=== PATIENT | female | born 1955 | race Caucasian/White ===

== ENCOUNTER 2024-05-27 13:47 | Outpatient (REF) | payer MEDICARE, SELFPAY ==
[2024-05-27 14:09] VITALS: BP 187/82; PULSE 65; RESP 17; TEMP 36.1; O2SAT 96; BMI 35.4
== END 2024-05-27 13:48 | disposition home or self-care (01) ==
LOC: HO.MS 13:47
PROVIDERS: PCP Internal Medicine; Visit Provider Ophthalmology
PROC: (CPT 66821; principal; 2024-05-27 14:30)
DX: H26.491 Other secondary cataract, right eye (principal)
CPT/HCPCS: 66821

== ENCOUNTER 2024-06-21 12:35 | Outpatient (AMB) | payer MEDICARE, SELFPAY ==
[2024-06-21 12:36] VITALS: BP 140/80; PULSE 68; TEMP 36.6; O2SAT 98; BMI 41.6
--- NOTE | 2024-06-21 12:36 | MHC.OFFWIV ---
Intake Vital Signs 06/21/24 12:36 Height 5 ft 3 in Weight 235 lb BMI 41.6 BP 140/80 H Blood Pressure Location Rt brachial Position Sitting Pulse 68 Pulse Source Pulse Oximeter Temp 97.9 F Temp Source Temporal Artery Scan Pulse Oximetry (%) 98 Intake Visit Reasons: ?pink eye-left eye Intake Note: pt is here for pink eye, left eye Patient Tobacco Use Status: Never used Tobacco Allergies No Known Allergies Allergy (Verified 06/21/24 12:36) Medication List - Last Reconciled 06/21/24 by Georgia Flores NP amlodipine 5 mg PO DAILY budesonide-formoterol 160-4.5 mcg/actuation (Symbicort) inhalation erythromycin 0.5 inches ophthalmic (eye) TID gabapentin mg PO metoprolol succinate ER 100 mg PO DAILY simvastatin 40 mg PO BEDTIME tiotropium bromide 1 cap inhalation DAILY trazodone 100 mg PO BEDTIME venlafaxine ER 225 mg PO DAILY Do you need a note to return to daycare/school/sports/work: Yes HPI ?pink eye-left eye HPI Details This note is constructed using voice recognition software. While every effort has been made to ensure accuracy, quality assurance group leader errors may have been included. The patient is a 69 year old female who presents to the clinic today with concerns for pink eye on the left with symptom onset within the past 24 hours. She notes that there is some erythema, yellow discharge that the eye is itchy. 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 She is not a contact wearer, and does not wear eye makeup. She denies fevers, chills, cough, shortness of breath. No worsening vision. PFSH Social History Patient Tobacco Use Status: Never used Tobacco Review of Systems Const All systems reviewed & are unremarkable except as noted in HPI and below Physical Exam Vital Signs: Last Vital Signs Temp 97.9 F 06/21/24 12:36 Pulse 68 06/21/24 12:36 BP 140/80 H 06/21/24 12:36 Pulse Ox 98 06/21/24 12:36 BMI result Body Mass Index 41.6 Const General: cooperative, healthy appearing, comfortable, no acute distress and alert Orientation/consciousness: patient oriented x3 Limitations: no limitations Eyes Eyelids: Yes eyelids normal Conjunctivae: conjunctival abnormal left conjunctival injection (Left lower lid) and discharge (Yellow crusting) Sclerae: sclerae normal Corneas: corneas normal Pupils: Equal, round and reactive pupils present EOM: EOMs intact bilaterally Neuro General: patient oriented x3 Cranial nerves: Yes Equal, round and reactive pupils present Psych Appearance: grossly normal Mental Status: mental status grossly normal Speech and movement: Normal speech and movement present Affect: normal affect Assessment & Plan Assessment & Plan (1) Conjunctivitis: Code(s): H10.9 - Unspecified conjunctivitis Qualifiers: Conjunctivitis type: acute Acute conjunctivitis type: bacterial Laterality: left Qualified Code(s): H10.32 - Unspecified acute conjunctivitis, left eye Plan: Erythromycin ointment sent to requested pharmacy. Advised patient to avoid touching eyes, and washing hands after any contact with her eyes. Given that she wears glasses and does not use any eye makeup there is nothing to dispose of the this time. Advised patient to follow up with worsening or failure to resolve. Plan See above for full details and plan. Medications: New erythromycin Apply inside left eye lid 0.5 inches ophthalmic (eye) TID 3.5 grams 0RF Coding Level of Care Code Est Pt Level 3 (77711) Diagnoses Acute bacterial conjunctivitis of left eye H10.32 Conjunctivitis type: acute Acute conjunctivitis type: bacterial Laterality: left
== END 2024-06-21 14:32 | disposition home or self-care (01) ==
PROVIDERS: PCP Internal Medicine; Visit Provider Registered Nurse
DX: H10.32 Unspecified acute conjunctivitis, left eye (principal)
CPT/HCPCS: 99213

== ENCOUNTER 2024-06-24 13:16 | Outpatient (AMB) | payer MEDICARE, SELFPAY ==
--- NOTE | 2024-06-24 14:19 | MHC.OFFWIV ---
Intake Vital Signs 06/24/24 14:20 Height 5 ft 3 in Weight 235 lb BMI 41.6 BP 142/84 H Blood Pressure Location Lt brachial Position Sitting Pulse 78 Pulse Source Pulse Oximeter Temp 98.0 F Temp Source Oral Pulse Oximetry (%) 95 Oxygen Delivery Method Room Air Intake Visit Reasons: RT eye possible [place] eye Intake Note: RT eye possible pink eye Patient Tobacco Use Status: Never used Tobacco Allergies No Known Allergies Allergy (Verified 06/24/24 14:20) Do you need a note to return to daycare/school/sports/work: No HPI HPI Comments History of Present Illness Details presents to the walkin today for bilateral eye irritation Was evaluated here 3 days ago for left eye crusting and itching. Prescribed erythromycin ointment. States has not tolerated. It worsened the itching and she knows burning 4 hours after instilling it. Today she woke with crusting in itching of the right eye as well Denies use of contacts or eye makeup Denies pain to the eye, denies vision changes, headache. Patient denies pain with eye movement. Denies fever, cough, sinus congestion, sore throat or ear ache. Denies trauma to the eye or foreign body sensation. [facility] Social History Patient Tobacco Use Status: Never used Tobacco Review of Systems Const All systems reviewed & are unremarkable except as noted in HPI and below Physical Exam Vital Signs: Last Vital Signs Temp 98.0 F 06/24/24 14:20 Pulse 78 06/24/24 14:20 BP 142/84 H 06/24/24 14:20 Pulse Ox 95 06/24/24 14:20 Oxygen Delivery Method Room Air 06/24/24 14:20 BMI result Body Mass Index 41.6 General: awake, alert, oriented. Answers questions appropriately. Fully engaged in examination. Skin: warm, dry, intact HEENT: Normocephalic. Hearing intact. Bilateral eyes: + mucoid discharge, conjunctival injection Cardiac: External chest normal in appearance. Respiratory: No cough, audible wheezing or stridor. Abdomen: without gross distension. MS: No obvious swelling or deformities. Neurological: Oriented to person, place, time and situation. Thought process intact. Psychiatric: Appropriate mood and affect. Good judgment and insight. Assessment & Plan Assessment & Plan (1) Bilateral conjunctivitis: Code(s): H10.9 - Unspecified conjunctivitis Plan ABX drops, 1 drop to both eyes four times daily. Avoid touching, rubbing the eyes. Do not use same area of facecloth to clean both eyes. Wash hands often. All questions and concerns were answered during the visit. Patient agrees with the plan. Follow up with pcp or return to walkin for any new or worsening symptoms. Medications: New polymyxin B sulf-trimethoprim 10,000 unit- 1 mg/mL while awake; do not exceed 6 doses in 24 hours 1 drp ophthalmic (eye) QID 7 days 10 mL 0RF Coding Level of Care Code Est Pt Level 3 (38514) Diagnoses Bilateral conjunctivitis H10.9
[2024-06-24 14:20] VITALS: BP 142/84; PULSE 78; TEMP 36.7; O2SAT 95; BMI 41.6
== END 2024-06-24 14:51 | disposition home or self-care (01) ==
PROVIDERS: PCP Internal Medicine; Visit Provider Registered Nurse Emergency
DX: H10.9 Unspecified conjunctivitis (principal)
CPT/HCPCS: 99213

== ENCOUNTER 2024-10-23 09:07 | Inpatient (IN) | payer MEDICARE, SELFPAY ==
--- NOTE | ~2024-10-23 | XR_ITS ---
EXAMINATION: XR CHEST CLINICAL INFORMATION: sob COMPARISON: None available. TECHNIQUE: Frontal view of the chest was obtained. FINDINGS: No focal consolidation. No pneumothorax. Trachea is midline. Cardiac mediastinal silhouette is not enlarged. No large pleural effusion. Osseous structures are intact. Soft tissues are unremarkable. XR/XR chest 1V IMPRESSION: No acute cardiopulmonary process. Electronically signed by: Lynne Gray MD 10/24/2024 01:39 PM EST
[2024-10-23 09:19] VITALS: BP 139/82; PULSE 95; RESP 20; TEMP 36.2; O2SAT 97; BMI 36.6
--- NOTE | 2024-10-23 09:23 | ECG_ITS ---
Test Reason : psych meds Blood Pressure : / mmHG Vent. Rate : 091 BPM Atrial Rate : 091 BPM P-R Int : 156 ms QRS Dur : 072 ms QT Int : 384 ms P-R-T Axes : 042 004 068 degrees QTc Int : 472 ms Normal sinus rhythm Left ventricular hypertrophy with repolarization abnormality ( R in aVL ) Abnormal ECG When compared with ECG of 10-MAR-2011 14:17, RSR' pattern in V1 is no longer Present ST now depressed in Anterior leads Referred By: Generic ED Physician Electronically Signed By:MYRNA BARTH
--- NOTE | 2024-10-23 09:26 | ED_ITS ---
HPI - General Adult General Chief complaint: Psychiatric Symptoms Stated complaint: Crisis Time Seen by Provider: 10/23/24 09:26 Source: patient and family (patient's ) Mode of arrival: ambulatory Limitations: no limitations History of Present Illness ED Provider: Charo Babin PA-C HPI narrative: Patient is a 69 year old assigned female at with a history of depression presenting to the emergency department today with vague suicidal ideation and worsening depression. Patient states that she has felt much more down lately even though she is taking her medication as prescribed. Patient's states that the patient has been making statements that she wants to just . Patient denies any dizziness, lightheadedness, abdominal pain, nausea, vomiting, fever, chills, blurry vision, double vision, loss of vision, chest pain, difficulty breathing, shortness of breath, back pain, night sweats, pain with urination, increased urinary frequency, increased urinary urgency, blood in her urine or stool, syncope or a near syncopal episode, recent trauma or falls, bowel incontinence, bladder incontinence, or any other complaints at this time. Relieving factors: none Exacerbating factors: none Associated symptoms: denies other symptoms Treatments prior to arrival: none Related Data Home Medications ?Medication ?Instructions ?Recorded ?Confirmed amlodipine 5 mg tablet 5 mg PO DAILY 06/21/24 06/21/24 budesonide-formoterol HFA 160 inhalation 06/21/24 06/21/24 mcg-4.5 mcg/actuation aerosol inhaler (Symbicort) gabapentin 300 mg capsule mg PO 06/21/24 06/21/24 metoprolol succinate 100 mg 100 mg PO DAILY 06/21/24 06/21/24 tablet,extended release 24 hr simvastatin 40 mg tablet 40 mg PO BEDTIME 06/21/24 06/21/24 tiotropium bromide 18 mcg capsule 1 cap inhalation DAILY 06/21/24 06/21/24 with inhalation device trazodone 100 mg tablet 100 mg PO BEDTIME 06/21/24 06/21/24 venlafaxine 75 mg capsule,extended 225 mg PO DAILY 06/21/24 06/21/24 release 24 hr Previous Rx's ?Medication ?Instructions ?Recorded polymyxin B sulfate 10,000 1 drp ophthalmic (eye) QID 7 days 06/24/24 unit-trimethoprim 1 mg/mL eye drops #10 mL Allergies Allergy/AdvReac Type Severity Reaction Status Date / Time lisinopril AdvReac Cough Verified 10/23/24 09:22 sulfamethoxazole AdvReac Gastrointestinal Verified 10/23/24 09:22 [From Bactrim] Upset trimethoprim [From Bactrim] AdvReac Gastrointestinal Verified 10/23/24 09:22 Upset Review of Systems 2 Constitutional: Constitutional: Reports no additional constitutional complaints, Denies chills, Denies fever(s) and Denies night sweats Eyes: Eyes: Reports no additional eye complaints, Denies blurry vision, Denies change in vision, Denies diplopia, Denies eye discharge, Denies loss of vision and Denies eye pain ENT: Denies dizziness Cardiovascular: Cardiovascular: Reports no additional cardiovascular complaints, Denies chest pain, Denies lightheadedness, Denies Loss of Consciousness and Denies dyspnea Respiratory: Respiratory: Reports no additional respiratory complaints and Denies dyspnea Gastrointestinal: Gastrointestinal: Reports no additional gastrointestinal complaints, Denies abdominal pain, Denies melena, Denies hematochezia, Denies change in bowel habits and Denies change in stool character Genitourinary: Genitourinary: Denies hematuria, Denies urinary frequency, Denies dysuria, Denies urinary incontinence, Denies urinary hesitancy and Denies urinary urgency Musculoskeletal: Musculoskeletal: Reports no additional musculoskeletal complaints, Denies numbness and Denies tingling Neurologic: Denies dizziness, Denies loss of vision, Denies numbness and Denies tingling Psychiatric: Psychiatric: Reports depression, Denies homicidal ideation and Reports suicidal ideation Endocrine: Endocrine: Reports no additional endocrine complaints Hematologic/Lymphatic: Hematologic/Lymphatic: Reports no additional hematologic/lymphatic complaints Allergic/Immunologic: Allergic/Immunologic: Reports no additional allergic/immunologic complaints PMFSH Past Medical History Attestation statement: The following information was validated with the patient. (all information validated with the patient's ) Source: old records reviewed, obtained from family (patient's provided additional history and confirmed the history provided by the patient) and nursing notes reviewed Social History Social History Patient Tobacco Use Status: Never used Tobacco Smoked in Last 30 Days: No Use of substances other than those prescribed or required for medical reasons: No Advance Directives: Yes Advance Directives Information Provided: No Advance Directives on File: No Physical Exam ED Vital Signs: Vital Signs - 24 hr 10/23/24 09:19 10/23/24 09:59 10/23/24 10:38 Temperature 97.1 F 97.9 F 96.8 F Pulse Rate 95 84 91 Respiratory Rate 20 16 16 Blood Pressure 139/82 145/70 H 176/77 H Pulse Oximetry 97 97 99 Oxygen Delivery Method Room Air Room Air Room Air 10/23/24 14:09 Temperature Pulse Rate 92 Respiratory Rate 18 Blood Pressure 167/83 H Pulse Oximetry 98 Oxygen Delivery Method Room Air BMI result Body Mass Index 36.6 Const General: cooperative, no acute distress, alert and awake Nutritional Appearance: well nourished Orientation/consciousness: patient oriented x3 Limitations: no limitations HENMT Head: Yes normal to inspection and Yes atraumatic Ears: hearing grossly normal bilaterally and external ears normal General nose exam: Normal external nose present, no nasal discharge noted and no epistaxis Face and sinus: Yes normal facial exam, No abrasion and No laceration Mouth: Normal oral and palatal mucosa present, no drooling and no muffled voice Eyes General: appearance normal, both eyes and all related structures Periorbital: periorbital findings normal Eyelids: Yes eyelids normal Conjunctivae: conjunctivae normal Pupils: Equal, round and reactive pupils present EOM: EOMs intact bilaterally Neck Neck: Yes normal visual inspection, Yes full ROM and Yes no lymphadenopathy Chest Chest palpation & inspection: normal inspection of the chest Resp Effort & Inspection: normal respiratory effort and able to speak in complete sentences GI Inspection: Yes normal to inspection Neuro General: patient oriented x3 and moves all extremities Cranial nerves: Yes Equal, round and reactive pupils present Cognition (Neuro): normal cognition Extrem General: Yes normal to inspection, Yes full ROM and Yes capillary refill normal Psych Appearance: grossly normal Mental Status: mental status grossly normal Affect: Sad affect present Attitude: Guarded attititude/behavior present Thought content: Suicidality present Medical Decision Making Medical Decision Making MDM Narrative: Patient is a 69 year old assigned female at with a history of depression presenting to the emergency department today with increased depression and suicidal ideation. Patient's physical exam was as noted in the physical exam portion of this note. Patient's blood work showed a mildly decreased K+ of 3.0 as well as an elevated WBC count of 13.7 (patient has no evidence of acute infection). Patient's urine showed had + leuks, 11-20 WBC and NO bacteria. The patient's urine sample was contaminated with 6-10 epithelial cells. Patient's urine sample is not consistent with a UTI - recommend awaiting culture results before beginning any kind of antibiotic treatment. Patient's EKG was unremarkable. Patient was evaluated by the CARE team who recommended inpatient level of psychiatric care. I explained my physical exam findings as well as all test results to the patient and the patient's . I answered all questions asked by the patient and the patient's . Patient and the patient's verbalized agreement and understanding with this treatment plan and remaining in the department pending either admission here at [facility] for inpatient level of psychiatric care or transfer to another facility for inpatient level of psychiatric care. Differential Diagnosis Differential Diagnoses: The differential diagnosis associated with the presentation includes Depression Suicidal ideation Admission/Observation Consideration of admission/observation: Escalation of care including admission/observation considered Patient to be admitted or transferred for inpatient level of psychiatric care. Consult Healthcare Provider Management of the patient was discussed with: Behavioral Health Provider (spoke to the CARE team as noted in the MDM Rationale portion of this note.) Lab Data [facility] Lab Attestation statement: I reviewed the patient's lab results. My interpretation of these results are in the MDM Rationale portion of this note. 10/23/24 09:32 10/23/24 09:32 Labs: Lab Results 10/23/24 10/23/24 10/23/24 Range/Units 09:32 09:51 12:58 WBC 13.7 H (4.8-10.8) X10*3/uL RBC 4.95 (4.20-5.50) X10*6/uL Hgb 15.5 (12.0-16.0) g/dl Hct 44.5 (37.0-47.0) % MCV 89.9 (80.0-98.0) fL MCH 31.3 (27.0-33.0) pg MCHC 34.8 (31.0-35.0) g/dl RDW 13.0 (11.0-16.0) % Plt Count 330 (160-400) X10*3/uL MPV 8.8 L (9.4-12.3) fL Immature Gran % (Auto) 1.0 H (0.0-0.4) % Neut % (Auto) 75.0 H (45-73) % Lymph % (Auto) 16.2 L (20-40) % [place] % (Auto) 7.1 (2-11) % Eos % (Auto) 0.5 (0-4) % Baso % (Auto) 0.2 (0-2) % Lymph # (Auto) 2.2 (1.2-4.9) X10*3/uL [place] # (Auto) 1.0 (0.1-1.2) X10*3/uL Eos # (Auto) 0.1 (0.0-0.4) X10*3/uL Baso # (Auto) 0.0 (0.0-0.2) X10*3/uL Abs Immat Gran (auto) 0.14 H (0.00-0.03) X10*3/uL Absolute Neuts (auto) 10.3 H (2.0-8.3) x10*3/uL Absolute Nucleated RBC 0.000 (0.0-0.012) X10*3/uL Nucleated RBC % (auto) 0.0 (0.0-0.2) /100WBC Sodium 139 (135-145) mmol/L Potassium 3.0 L (3.3-5.1) mmol/L Chloride 100 (96-108) mmol/L Carbon Dioxide 23 (22-29) mmol/L Anion Gap 19 (12-20) BUN 17 H (9-16) mg/dL Creatinine 1.24 (0.5-1.4) mg/dL Estim Creat Clear Calc 50.1 Estimated GFR 43 POC Glucose 135 H (60-115) mg/dL Random Glucose 147 H (60-115) mg/dL Calcium 8.9 (8.4-10.2) mg/dL Total Bilirubin 0.6 (0.0-1.0) mg/dL AST 44 H (5-31) U/L ALT 42 H (0-31) U/L Alkaline Phosphatase 80 (39-117) U/L Total Protein 6.6 (6.5-8.0) g/dL Albumin 3.8 (3.5-5.0) g/dL Urine Color Yellow Urine Appearance Clear Urine pH 6.0 (5.0-9.0) Ur Specific [place] 1.015 (1.005-1.025) Urine Protein Negative (Neg-Trace) mg/dL Urine Glucose (UA) Negative (Negative) mg/dL Urine Ketones 15 (Negative) mg/dL Urine Blood Negative (Negative) Urine Nitrite Negative (Negative) Ur Leukocyte Esterase Small (1+) H (Negative) Urine RBC 0-2 (0-2) /HPF Urine WBC 11-20 H (0-5) /HPF Ur Squamous Epith Cells 6-10 (0-2) /HPF Urine Bacteria None Seen (None Seen) Hyaline Casts 3-5 (0-2) /LPF Independent Interpretation I performed an independent interpretation of an: EKG Interpretation: Vent. Rate: 091 BPM Atrial Rate: 091 BPM P-R Int: 156 ms QRS Dur: 072 ms QT Int: 384 ms P-R-T Axes: 042 004 068 degrees QTc Int: 472 ms Normal sinus rhythm Left ventricular hypertrophy with repolarization abnormality ( R in aVL ) Abnormal ECG When compared with ECG of 10-MAR-2011 14:17, RSR' pattern in V1 is no longer Present ST now depressed in Anterior leads DD/ [id number] Independent Historian Clinical information obtained from an independent historian. History obtained from or confirmed by: Spouse (patient's provided additional history and confirmed the history provided by the patient.) Discharge Plan Discharge Clinical Impression: Depression, Suicidal ideation Patient Disposition: Still a Patient Prescriptions: No Action amlodipine 5 mg tablet 5 mg PO DAILY budesonide-formoterol [Symbicort] 160-4.5 mcg/actuation HFA aerosol inhaler inhalation tiotropium bromide 18 mcg capsule, w/inhalation device 1 cap inhalation DAILY metoprolol succinate 100 mg tablet extended release 24 hr 100 mg PO DAILY simvastatin 40 mg tablet 40 mg PO BEDTIME venlafaxine 75 mg capsule,extended release 24hr 225 mg PO DAILY gabapentin 300 mg capsule PO trazodone 100 mg tablet 100 mg PO BEDTIME polymyxin B sulf-trimethoprim 10,000 unit- 1 mg/mL drops 1 drp ophthalmic (eye) QID 7 Days Qty: 10 0RF Rx Instructions: while awake; do not exceed 6 doses in 24 hours Interventions: [place]-Suicide Risk Severity Scale Last Done: 10/23/24 09:59 Print Language: Divehi
[2024-10-23 09:38] LABS: MANUAL DIFF FLAG NO
[2024-10-23 09:39] LABS: Basophils Percent Auto 0.2 % (0-2); Eosinophils Absolute Auto 0.1 X10*3/uL (0.0-0.4); Eosinophils Percent Auto 0.5 % (0-4); Hematocrit 44.5 % (37.0-47.0); Hemoglobin 15.5 g/dl (12.0-16.0); Imm Gran Abs Auto 0.14 X10*3/uL (0.00-0.03); Lymphocytes Absolute Auto 2.2 X10*3/uL (1.2-4.9); Lymphocytes Percent Auto 16.2 % (20-40); Mean Corpuscular HGB Conc 34.8 g/dl (31.0-35.0); Mean Corpuscular Hemoglobin 31.3 pg (27.0-33.0); Mean Corpuscular Volume 89.9 fL (80.0-98.0); Mean Platelet Volume 8.8 fL (9.4-12.3); Monocytes Percent Auto 7.1 % (2-11); Neutrophils Absolute Auto 10.3 x10*3/uL (2.0-8.3); Platelet Count 330 X10*3/uL (160-400); Red Blood Count 4.95 X10*6/uL (4.20-5.50); White Blood Count 13.7 X10*3/uL (4.8-10.8)
[2024-10-23 09:57] LABS: Alkaline Phosphatase 80 U/L (39-117)
[2024-10-23 09:58] LABS: Glucose, Whole Blood 135 mg/dL (60-115)
[2024-10-23 09:58] LABS: Alanine Aminotransferase 42 U/L (0-31); Albumin Level 3.8 g/dL (3.5-5.0); Anion Gap 19 (12-20); Aspartate Amino Transferase 44 U/L (5-31); Bilirubin Total 0.6 mg/dL (0.0-1.0); Blood Urea Nitrogen 17 mg/dL (9-16); Calcium 8.9 mg/dL (8.4-10.2); Carbon Dioxide 23 mmol/L (22-29); Chloride 100 mmol/L (96-108); Creatinine Clr Calc Pharmacy 50.1; Estimated Glomerular Filt Rate 43; Glucose Random 147 mg/dL (60-115); Sodium 139 mmol/L (135-145); Total Protein 6.6 g/dL (6.5-8.0)
[2024-10-23 09:59] VITALS: BP 145/70; PULSE 84; RESP 16; TEMP 36.6; O2SAT 97
--- NOTE | 2024-10-23 10:11 | PC.NURSE ---
Pt comes to ED today from home for SI. A&Ox3, VSS, afebrile, calm and cooperative. Breaths and speech are slow, stacey, and unlabored. Skin is warm and dry. Pt keeps eyes closed during initial assessment but answers all questions. Pt reports SI at this time. She denies a plan at this time and t she has never attempted to harm herself in the past despite any SI. states she has had SI in the past Pt denies HI at this time. Pts at bedside. Pt changed over into hospital attire; Pts takes custody of Pts belongings and places them in their private vehicle to take home.
[2024-10-23 10:38] VITALS: BP 176/77; PULSE 91; RESP 16; TEMP 36; O2SAT 99
--- NOTE | 2024-10-23 11:00 | PC.NURSE ---
Care Team at bedside.
[2024-10-23 13:06] LABS: Appearance Urine Clear; Color Urine Yellow; Glucose Urine UA Negative (Negative); Leukocyte Esterase Urine Small (1+) (Negative); Nitrite Urine Negative (Negative); Specific Gravity - Urine 1.015 (1.005-1.025); UMIC TRIGGER UACC YES; Urine Blood Negative (Negative); Urine Ketones 15 mg/dL (Negative); Urine Protein Negative (Neg-Trace)
[2024-10-23 13:09] LABS: Bacteria Urine None Seen (None Seen); RBC Urine 0-2 /HPF (0-2); UACC Culture Trigger YES
[2024-10-23 14:09] VITALS: BP 167/83; PULSE 92; RESP 18; O2SAT 98
--- NOTE | 2024-10-23 16:06 | PC.NURSE ---
RN to RN report completed for S1. Pt transported to S1 at this time.
[2024-10-23 16:21] VITALS: BP 139/78; PULSE 100; RESP 20; TEMP 36.8; O2SAT 97
[2024-10-23 16:25] VITALS: BMI 36.4
--- NOTE | 2024-10-23 17:03 | PC.ADMIT ---
Bernadette a 69 year old female was admitted to S1 at 1611 from our ED via wheelchair for Unspecified depressive and Unspecified Anxiety. She also has Dx of HTN, Obesity and Lymphedema. Patient reports high 9/10 anxiety and depression. She says that she feels like she is having a hard time breathing even though her O2 is OK and her CXR yesterday was ok. She is just getting over Bronchitis. She has vague suicidal thoughts but no plan. She has no eye with this health technical writer contact but is pleasant and cooperative. [id number] with O2 Sat 97% on room air. Her weight is 99.2 kg standing. She has 14 rings, 12 at nurses station and she is unable to remove two of them. She has one pair of earrings on that she refuses to remove and one pair of earrings at the nurses station. She is here voluntarily. She reports a poor appetite and difficulty swallowing because of her breathing. Her skin is clear except for some scattered bruises on both hands and arms. She also has a pair of eyeglasses with her, freeman frame.
[2024-10-23 20:00] VITALS: BP 138/73; PULSE 98; RESP 16; TEMP 35.5; O2SAT 95
--- NOTE | 2024-10-23 22:09 | PHA.MEDREC ---
Pharmacy Consult ? Medication Reconciliation Pharmacy has completed the medication reconciliation. Used pharmacy claims and spoke to Franko Hylton to confirm medication list. said pt doesn't take gabapentin and chlorthalidone. The 2 inhalers that pt uses are Wixela and Spiriva ( the albuterol makes pt jittery).
[2024-10-24 07:00] VITALS: BMI 30.1
[2024-10-24 08:26] LABS: Estimated Average Glucose 163 mg/dL; Hemoglobin A1C 217.8243 umol/L; Hemoglobin A1c % 7.3 % (<6.0); Total Hemoglobin (HGBA1C) 3853.2111 umol/L
[2024-10-24 08:29] LABS: Alanine Aminotransferase 54 U/L (0-31); Albumin Level 3.7 g/dL (3.5-5.0); Alkaline Phosphatase 76 U/L (39-117); Anion Gap 19 (12-20); Aspartate Amino Transferase 49 U/L (5-31); Bilirubin Total 0.5 mg/dL (0.0-1.0); Blood Urea Nitrogen 18 mg/dL (9-16); Carbon Dioxide 23 mmol/L (22-29); Chloride 101 mmol/L (96-108); Cholesterol 162 mg/dL (<200); Creatinine Clr Calc Pharmacy 46.8; Estimated Glomerular Filt Rate 40; Glucose Fasting 122 mg/dL (60-99); HDL Cholesterol 49 mg/dL (>40); LDL Cholesterol Calculated 83 mg/dL (<100); Potassium 3.1 mmol/L (3.3-5.1); Sodium 140 mmol/L (135-145); Total Protein 6.4 g/dL (6.5-8.0); Triglycerides 151 mg/dL (<150)
[2024-10-24 08:43] LABS: TSH reflex Free T4 2.28 uIU/mL (0.32-4.0)
[2024-10-24 08:56] LABS: Folate 16.2 ng/mL (> or = 4.0); Vitamin B12 1088 pg/mL (200-900)
[2024-10-24 10:10] VITALS: BP 136/82; PULSE 117; RESP 20; TEMP 36.1; O2SAT 97
--- NOTE | 2024-10-24 12:34 | HO.PSYADMNOT ---
HPI Date of Service: 10/24/24 Chief Complaint: SI Sources of Information: patient interviewed, chart reviewed and crisis/core team assessment reviewed Additional Sources of Information: The patient chart reviewed emergency room evaluation and labs reviewed and patient seen at 11:30 HPI Subjective Notes: Conditional Voluntary Medical Problems Affecting Mental Status: Yes (Question prednisone induced mood instability) Narrative: The patient is a 69-year-old female without prior psychiatric hospitalization was referred to the emergency room by her primary care physician's office secondary to worsening depression complaints of shortness breath and thoughts that she wanted to because she could not stand how she was feeling. Patient apparently had a bout of bronchitis and had a course prednisone recently which may have been a significant contributing factor. There was no reported confounding factors such as alcohol or other substance use. 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 Hypokalemia noted will give potassium replacement question prednisone induced hypokalemia blood sugar also noted to be elevated hemoglobin A1c elevated patient complains of shortness breath recent checks x-ray reportedly within normal limits will repeat does not appear to be in respiratory distress PMFSH Family History: Question father with history of depression Social History: Patient born and raised in [facility]. 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 Patient is she lives with her states he is quite supportive. Patient has a son daughter. Substance History: None noted Trauma History: None noted Diagnostics Vital Signs (24Hr): Vital Signs - 24 hr 10/23/24 14:09 10/23/24 16:21 10/23/24 20:00 Temperature 98.2 F 95.9 F L Pulse Rate 92 100 98 Respiratory Rate 18 20 16 Blood Pressure 167/83 H 139/78 138/73 Pulse Oximetry 98 97 95 Oxygen Delivery Method Room Air Room Air Room Air 10/24/24 10:10 Temperature 97.0 F Pulse Rate 117 H Respiratory Rate 20 Blood Pressure 136/82 Pulse Oximetry 97 Oxygen Delivery Method Room Air BMI result Body Mass Index 36.4 Labs 10/23/24 09:32 10/24/24 07:19 Labs: Laboratory Results - last 48 hr 10/23/24 10/23/24 10/23/24 09:32 09:51 12:58 WBC 13.7 H RBC 4.95 Hgb 15.5 Hct 44.5 MCV 89.9 MCH 31.3 MCHC 34.8 RDW 13.0 Plt Count 330 MPV 8.8 L Immature Gran % (Auto) 1.0 H Neut % (Auto) 75.0 H Lymph % (Auto) 16.2 L Norman % (Auto) 7.1 Eos % (Auto) 0.5 Baso % (Auto) 0.2 Lymph # (Auto) 2.2 Norman # (Auto) 1.0 Eos # (Auto) 0.1 Baso # (Auto) 0.0 Abs Immat Gran (auto) 0.14 H Absolute Neuts (auto) 10.3 H Absolute Nucleated RBC 0.000 Nucleated RBC % (auto) 0.0 Sodium 139 Potassium 3.0 L Chloride 100 Carbon Dioxide 23 Anion Gap 19 BUN 17 H Creatinine 1.24 Estim Creat Clear Calc 50.1 Estimated GFR 43 POC Glucose 135 H Random Glucose 147 H Fasting Glucose Estimat Average Glucose Hemoglobin A1c % Calcium 8.9 Total Bilirubin 0.6 AST 44 H ALT 42 H Alkaline Phosphatase 80 Total Protein 6.6 Albumin 3.8 Triglycerides Cholesterol LDL Cholesterol, Calc HDL Cholesterol Vitamin B12 Folate TSH Urine Color Yellow Urine Appearance Clear Urine pH 6.0 Ur Specific [place] 1.015 Urine Protein Negative Urine Glucose (UA) Negative Urine Ketones 15 Urine Blood Negative Urine Nitrite Negative Ur Leukocyte Esterase Small (1+) H Urine RBC 0-2 Urine WBC 11-20 H Ur Squamous Epith Cells 6-10 Urine Bacteria None Seen Hyaline Casts 3-5 10/24/24 07:19 WBC RBC Hgb Hct MCV MCH MCHC RDW Plt Count MPV Immature Gran % (Auto) Neut % (Auto) Lymph % (Auto) Norman % (Auto) Eos % (Auto) Baso % (Auto) Lymph # (Auto) Norman # (Auto) Eos # (Auto) Baso # (Auto) Abs Immat Gran (auto) Absolute Neuts (auto) Absolute Nucleated RBC Nucleated RBC % (auto) Sodium 140 Potassium 3.1 L Chloride 101 Carbon Dioxide 23 Anion Gap 19 BUN 18 H Creatinine 1.32 Estim Creat Clear Calc 46.8 Estimated GFR 40 POC Glucose Random Glucose Fasting Glucose 122 H Estimat Average Glucose 163 Hemoglobin A1c % 7.3 H Calcium 9.0 Total Bilirubin 0.5 AST 49 H ALT 54 H Alkaline Phosphatase 76 Total Protein 6.4 L Albumin 3.7 Triglycerides 151 H Cholesterol 162 LDL Cholesterol, Calc 83 HDL Cholesterol 49 Vitamin B12 1088 H Folate 16.2 TSH 2.28 Urine Color Urine Appearance Urine pH Ur Specific [place] Urine Protein Urine Glucose (UA) Urine Ketones Urine Blood Urine Nitrite Ur Leukocyte Esterase Urine RBC Urine WBC Ur Squamous Epith Cells Urine Bacteria Hyaline Casts Meds/Allergies Meds Home Medications ?Medication ?Instructions ?Recorded ?Confirmed ?Type metoprolol succinate 100 mg 100 mg PO DAILY 06/21/24 10/23/24 History tablet,extended release 24 hr simvastatin 40 mg tablet 40 mg PO BEDTIME 06/21/24 10/23/24 History tiotropium bromide 18 mcg capsule 1 cap inhalation DAILY 06/21/24 10/23/24 History with inhalation device trazodone 100 mg tablet 100 mg PO BEDTIME 06/21/24 10/23/24 History venlafaxine 75 mg capsule,extended 225 mg PO DAILY 06/21/24 10/23/24 History release 24 hr fluticasone 250 mcg-salmeterol 50 1 ea inhalation BID 10/23/24 10/23/24 History mcg/dose blistr powdr for inhalation (Wixela Inhub) hydroxyzine HCl 25 mg tablet 25 mg PO TID 10/23/24 10/23/24 History lorazepam 1 mg tablet 0.5 mg PO TID PRN Anxiety 10/23/24 10/23/24 History metoclopramide HCl 10 mg tablet 10 mg PO BID 10/23/24 10/23/24 History Allergies Allergies Allergy/AdvReac Type Severity Reaction Status Date / Time lisinopril AdvReac Cough Verified 10/23/24 09:22 sulfamethoxazole AdvReac Gastrointestinal Verified 10/23/24 09:22 [From Bactrim] Upset trimethoprim [From Bactrim] AdvReac Gastrointestinal Verified 10/23/24 09:22 Upset Mental Status Exam Mental Status Exam Narrative: Mental Status Exam Narrative: Appearance: Patient seen at the bedside did not wish to moved to a private room Behavior: psychomotor: Somewhat lethargic Speech: Soft slow Thought proccess linear at times more rambling and internally preoccupied Thought content: Focused on not being able to stand how she was feeling thought she might be better off but denied plan or intent but clearly in great distress. Feeling hopeless helpless Mood: Depressed anxious Affect: Constricted SI: Thought she might be better off difficulty taking in information at this appears to be a response to prednisone Denies current plan or intent HI:denies VH/AH:none Delusions: Somatic preoccupation to the point delusion Insight/judgment: Somewhat impaired Memory/cog: Difficulty with attention memory appeared intact Assessment & Plan Assessment & Plan (1) Major depressive disorder, recurrent severe without psychotic features: Status: Acute Code(s): F33.2 - Major depressive disorder, recurrent severe without psychotic features (2) Substance or medication-induced anxiety disorder: Status: Acute Code(s): F19.980 - Other psychoactive substance use, unspecified with psychoactive substance-induced anxiety disorder Plan Patient admitted to psychiatric unit on a conditional voluntary secondary to thoughts of self-harm mood instability in the context of a history of depression and what appears to be prednisone-induced anxiety/agitation/irrational state. Explain to patient that she appeared to be experiencing a prednisone induced condition and Risperdal started for this steroid induced agitation/psychosis lorazepam scheduled secondary to patient's anxiety panic would benefit from abdominal breathing when more stable and training and belly breathing hospitalist consult for hypokalemia question steroid induced, elevated hemoglobin a 1 C at 7.1 in complaints of shortness breath chest x-ray appeared normal PO2 97 percent unremarkable patient needs much reassurance and education. Does not appear to be dyspneic. Hospitalist consult placed Would cont 5 min cks for now monitor pts safety Patient educated on: diagnosis and medical condition Informed Consent: further education needed Reason for continued inpatient stay Substantial Risk for: harm to self Statement Statement: I have reviewed the history and physical and performed a pertinent examination on my patient. No changes have occurred unless specified. If the History and Physical was not performed prior to admission, the Hospitalist's service will be consulted for completing the admission physical. Hospital evaluation reviewed inpatient seen 11:30 10/24/2024 Time Spent With Patient Time: Total time managing care of this patient today __60__ minutes.
--- NOTE | 2024-10-24 13:40 | HO.PM.IMCN ---
History of Present Illness Data of Consult Service Date: 10/24/24 Primary Care Provider: Shon Tolliver MD [facility] Reason for consult: sob, untreated diabetes,hypokalemia ? etiology Pt is a 69-year-old female with a PMH significant for COPD, HTN, HLD, prediabetes, and depression?who is admitted to [facility] for increasing depression with vague SI. Medical consult for SOB, untreated diabetes, and hypokalemia of unclear etiology. Patient seen and evaluated in her bed where she is resting comfortably on her side. Patient is soft spoken and has a flat affect. Patient reports has been experiencing shortness of breath for the past few days both at rest and with exertion, the patient reports has been mostly staying in bed during the day. Denies cough, lower leg edema, or orthopnea. Some nausea but no vomiting. Patient also reports has not been eating or drinking much at all. Denies diarrhea. No abdominal pain. Denies chest pain/pressure, palpitations. Patient states has a diagnosis of both COPD and prediabetes. Reports had not previously used her inhalers the past few days, up until 2 hours ago. CXR taken today negative for acute cardiopulmonary process. Repeat labs showed potassium mildly increased from 3.0 yesterday to 3.1 today. However, review of records indicates patient never received potassium supplementation while in the ED. Review of Systems Review of Systems: Negative except for that which is stated above [facility] Social History Household Members: Spouse Housing: House Do you presently have visiting nurse or other home services: No Patient Tobacco Use Status: Former Tobacco user Tobacco use type: Cigarette Smoked in Last 30 Days: No Patient Interested in Nicotine Replacement: No Patient Given Instructions on How to Stop Smoking: No Second Hand Smoke Exposure: No Use of substances other than those prescribed or required for medical reasons: No Currently Displaying Signs/Symptoms of Drug Intoxication Withdrawal: No Any prior treatment program specific to substance use: No Have you been hit, kicked, punched, or otherwise hurt by someone within the past year? If so, by whom?: No Do you feel safe in your current relationship?: Yes Is there a partner from a previous relationship who is making you feel unsafe now?: No Are you made to feel afraid or neglected: No Spiritual Healthcare Practices: none Congregation Healthcare Practices: none Cultural Healthcare Practices: none Advance Directives: Yes Advance Directives Information Provided: No Advance Directives on File: No Do you have thoughts of harming others: None Do you have a plan to hurt others: No Plan Recently lost weight without trying: No Nutrition Risks: Difficulty swallowing and Poor intake 0-25% >4 days Patient : No : No Poor oral hygiene: No Meds Allergies Allergy/AdvReac Type Severity Reaction Status Date / Time lisinopril AdvReac Cough Verified 10/23/24 09:22 sulfamethoxazole AdvReac Gastrointestinal Verified 10/23/24 09:22 [From Bactrim] Upset trimethoprim [From Bactrim] AdvReac Gastrointestinal Verified 10/23/24 09:22 Upset Active Medications: Current Medications Acetaminophen (Acetaminophen 325 Mg Tablet) 650 mg PO Q6H PRN PRN Reason: Headache/Pain Mild Scale (1-3) Al Hydroxide/Mg Hydroxide (Magnesium Hydrox/Alum Hydrox 30 Ml Oral.Susp) 30 ml PO Q6H PRN PRN Reason: Heartburn/Nausea Atorvastatin Calcium (Atorvastatin Calcium 20 Mg Tablet) 20 mg PO DAILY [facility] Fluticasone/Vilanterol (Fluticasone/Vilanterol 100/25 Blst.W.Dev) 1 puff INHALE RDAILY [facility] Lorazepam (Lorazepam 0.5 Mg Tablet) 0.5 mg PO Q6H PRN PRN Reason: Anxiety Lorazepam (Lorazepam 0.5 Mg Tablet) 0.5 mg PO TID JUAN C Magnesium Hydroxide (Milk Of Magnesia 30 Ml Oral.Susp) 30 ml PO DAILY PRN PRN Reason: Constipation Metoprolol Succinate (Metoprolol Succinate Er 100 Mg Tab.Er.24h) 100 mg PO DAILY JUAN C; Protocol Potassium Chloride (Potassium Chloride Er 20 Meq Tab.Er.Prt) 20 meq PO BID [facility] Risperidone (Risperidone 0.25 Mg Tablet) 0.25 mg PO TID [facility] Tiotropium [place] (Tiotropium [place] 2.5 Mcg 1 Puff/2.5 Mcg Mist.Inhal) 2 puff INHALE RDAILY JUAN C Trazodone HCl (Trazodone Hcl 50 Mg Tablet) 50 mg PO BEDTIME MRX1 PRN PRN Reason: Insomnia Home Medications ?Medication ?Instructions ?Recorded ?Confirmed ?Last Taken ?Type metoprolol succinate 100 mg 100 mg PO DAILY 06/21/24 10/23/24 Unknown History tablet,extended release 24 hr simvastatin 40 mg tablet 40 mg PO BEDTIME 06/21/24 10/23/24 Unknown History tiotropium bromide 18 mcg capsule 1 cap inhalation DAILY 06/21/24 10/23/24 Unknown History with inhalation device trazodone 100 mg tablet 100 mg PO BEDTIME 06/21/24 10/23/24 Unknown History venlafaxine 75 mg capsule,extended 225 mg PO DAILY 06/21/24 10/23/24 Unknown History release 24 hr fluticasone 250 mcg-salmeterol 50 1 ea inhalation BID 10/23/24 10/23/24 Unknown History mcg/dose blistr powdr for inhalation (Lindsay Inhub) hydroxyzine HCl 25 mg tablet 25 mg PO TID 10/23/24 10/23/24 Unknown History lorazepam 1 mg tablet 0.5 mg PO TID PRN Anxiety 10/23/24 10/23/24 Unknown History metoclopramide HCl 10 mg tablet 10 mg PO BID 10/23/24 10/23/24 Unknown History Physical Exam Vital Signs and Narrative: Vital Signs: Last Vital Signs Temp 97.0 F 10/24/24 10:10 Pulse 117 H 10/24/24 10:10 Resp 20 10/24/24 10:10 BP 136/82 10/24/24 10:10 Pulse Ox 97 10/24/24 10:10 O2 Del Method Room Air 10/24/24 10:10 BMI result Body Mass Index 36.4 General: AOx3, no acute distress Resp: Mild coarse breath sounds bilaterally CVS: S1, S2, RRR GI: +BS, NT, no distention Skin: Warm, dry Neuro: Cranial nerves II-XII grossly intact bilaterally. Motor grossly intact bilaterally Extremities: No edema Psych: Flat affect Results Labs 10/23/24 09:32 10/24/24 07:19 Labs: Laboratory Results - last 24 hr 10/24/24 07:19 Anion Gap 19 Estim Creat Clear Calc 46.8 Estimated GFR 40 Fasting Glucose 122 H Estimat Average Glucose 163 Hemoglobin A1c % 7.3 H Calcium 9.0 Total Bilirubin 0.5 AST 49 H ALT 54 H Alkaline Phosphatase 76 Total Protein 6.4 L Albumin 3.7 Triglycerides 151 H Cholesterol 162 LDL Cholesterol, Calc 83 HDL Cholesterol 49 Vitamin B12 1088 H Folate 16.2 TSH 2.28 Assessment and Plan (1) Hypokalemia: Status: Acute Plan Pt is a 69-year-old female with a PMH significant for COPD, HTN, HLD, CKD 3, prediabetes, and depression?who is admitted to [facility] for increasing depression with vague SI. Medical consult for SOB, untreated diabetes, and hypokalemia of unclear etiology. Shortness a breath Patient is experiencing SOB at rest and with exertion times 3-4 days CXR negative Physical exam reveals mild coarse breath sounds Has not been using home inhalers while in the emergency room or on the [facility] unit until 2 hours ago Likely secondary to COPD and medication noncompliance Continue home inhalers Will place [facility] order for p.r.n. Hypokalemia Patient initially with mildly low potassium of 3.0 in the ED Reports poor p.o. intake of unclear duration Received no potassium supplementation while in the ED Repeat labs showed potassium mildly improved 3.1 earlier today Received 20 mEq p.o. pill Will give additional 40 mEq p.o. packet Follow up potassium tomorrow Prediabetes Patient's A1c elevated at 7.3 Sugars relatively well-controlled with POC of 135 and fasting glucose of 122 Will start on metformin 500 b.i.d. Encouraged diabetic diet and diabetic snacking Thank you for allowing us to participate in the care of this patient. Signing off at this time. Please re-consult if any acute complaints or issues arise.
[2024-10-24] MEDS: Tiotropium Bromide 2.5 mcg 1 PUFF/2.5 MCG MIST.INHAL 2 PUFF INHALE (14:29)
[2024-10-24] MEDS: Fluticasone/Vilanterol 100/25 BLST.W.DEV 1 PUFF INHALE (14:29)
[2024-10-24 14:30] VITALS: BP 151/68; PULSE 101
[2024-10-24] MEDS: Metoprolol Succinate ER 100 MG TAB.ER.24H PO (14:30)
[2024-10-24] MEDS: Potassium Chloride ER 20 MEQ TAB.ER.PRT PO ×2 (14:30→20:40)
[2024-10-24] MEDS: Atorvastatin Calcium 20 MG TABLET PO (14:30)
[2024-10-24] MEDS: LORazepam 0.5 MG TABLET PO ×2 (14:30→20:40)
[2024-10-24] MEDS: risperiDONE 0.25 MG TABLET PO ×2 (14:30→20:39)
[2024-10-24] MEDS: Potassium Chloride Packet 20 MEQ PACKET 40 MEQ PO (17:19)
[2024-10-24] MEDS: Venlafaxine HCl ER 150 MG CAP.ER.24H PO (17:19)
[2024-10-24] MEDS: metFORMIN HCl 500 MG TABLET PO (17:19)
[2024-10-24 20:00] VITALS: BP 154/71; PULSE 85; RESP 16; TEMP 36; O2SAT 99
[2024-10-25 08:00] VITALS: BP 154/71; PULSE 85; RESP 18; TEMP 35.7; O2SAT 99
[2024-10-25] MEDS: LORazepam 0.5 MG TABLET PO ×3 (08:59→21:10)
[2024-10-25] MEDS: Metoprolol Succinate ER 100 MG TAB.ER.24H PO (08:59)
[2024-10-25] MEDS: Atorvastatin Calcium 20 MG TABLET PO (08:59)
[2024-10-25] MEDS: metFORMIN HCl 500 MG TABLET PO ×2 (09:00→16:18)
[2024-10-25] MEDS: Potassium Chloride ER 20 MEQ TAB.ER.PRT PO ×2 (09:00→21:10)
[2024-10-25] MEDS: risperiDONE 0.25 MG TABLET PO ×3 (09:00→21:09)
[2024-10-25] MEDS: Tiotropium Bromide 2.5 mcg 1 PUFF/2.5 MCG MIST.INHAL 2 PUFF INHALE (09:01)
[2024-10-25] MEDS: Fluticasone/Vilanterol 100/25 BLST.W.DEV 1 PUFF INHALE (09:01)
[2024-10-25] MEDS: Venlafaxine HCl ER 150 MG CAP.ER.24H PO (09:10)
[2024-10-25 09:34] LABS: Anion Gap 16 (12-20); Carbon Dioxide 25 mmol/L (22-29); Chloride 104 mmol/L (96-108); Potassium 3.5 mmol/L (3.3-5.1); Sodium 141 mmol/L (135-145)
[2024-10-25 10:07] LABS: Folate 17.3 ng/mL (> or = 4.0); Vitamin B12 1150 pg/mL (200-900)
--- NOTE | 2024-10-25 13:46 | HO.PSYCHPN ---
Subjective Subjective Date of Service: 10/25/24 Reason For Visit: SI Subjective Notes: Conditional Voluntary Interim History: The nursing staff reported the patient has been anxious and depressed. She did not have any food yesterday. Her visited yesterday and reported that she had been more anxious. Today the staff reported that she was less anxious today in the morning. On interview the patient denies over-sedation with Ativan. We will keep on the same medications at this point. Mental Status Exam Mental Status Exam Patient Appearance: Appropriate Patient Orientation: Person and Situation Level of Consciousness: Awake and Appropriate Patient Behavior: Guarded and Passive Mood Description: Withdrawn and Constricted Affect Description: Calm Patient Cognition Impaired: Yes Ability to Follow Directions: Good Speech Pattern: Clear Hallucinations: None Delusions: Not Present Thought Process: Distracted and Slowed Thinking Thought Content: positive for [place] and positive for Poverty of Content Judgement: Fair Diagnostics Vital Signs (24Hr): Vital Signs - 24 hr 10/24/24 14:30 10/24/24 20:00 10/25/24 08:00 Temperature 96.8 F 96.3 F L Pulse Rate 101 H 85 85 Respiratory Rate 16 18 Blood Pressure 151/68 H 154/71 H 154/71 H Pulse Oximetry 99 99 Oxygen Delivery Method Room Air Room Air BMI result Body Mass Index 30.1 Labs 10/23/24 09:32 10/25/24 08:26 Labs: Laboratory Results - last 48 hr 10/24/24 10/25/24 10/25/24 07:19 08:26 08:29 Sodium 140 141 Potassium 3.1 L 3.5 Chloride 101 104 Carbon Dioxide 23 25 Anion Gap 19 16 BUN 18 H Creatinine 1.32 Estim Creat Clear Calc 46.8 Estimated GFR 40 Fasting Glucose 122 H Estimat Average Glucose 163 Hemoglobin A1c % 7.3 H Calcium 9.0 Total Bilirubin 0.5 AST 49 H ALT 54 H Alkaline Phosphatase 76 Total Protein 6.4 L Albumin 3.7 Triglycerides 151 H Cholesterol 162 LDL Cholesterol, Calc 83 HDL Cholesterol 49 Vitamin B12 1088 H 1150 H Folate 16.2 17.3 TSH 2.28 Imaging Radiology Impressions: ITS Impressions Chest X-Ray 10/24/24 13:10 IMPRESSION: No acute cardiopulmonary process. Electronically signed by: Lynne Gray MD 10/24/2024 01:39 PM [facility] Medications Medications Current Medications Acetaminophen (Acetaminophen 325 Mg Tablet) 650 mg PO Q6H PRN PRN Reason: Headache/Pain Mild Scale (1-3) Al Hydroxide/Mg Hydroxide (Magnesium Hydrox/Alum Hydrox 30 Ml Oral.Susp) 30 ml PO Q6H PRN PRN Reason: Heartburn/Nausea Atorvastatin Calcium (Atorvastatin Calcium 20 Mg Tablet) 20 mg PO DAILY [facility] Last Admin: 10/25/24 08:59 Dose: 20 mg Fluticasone/Vilanterol (Fluticasone/Vilanterol 100/25 Blst.W.Dev) 1 puff INHALE RDAILY [facility] Last Admin: 10/25/24 09:01 Dose: 1 puff Lorazepam (Lorazepam 0.5 Mg Tablet) 0.5 mg PO Q6H PRN PRN Reason: Anxiety Lorazepam (Lorazepam 0.5 Mg Tablet) 0.5 mg PO TID [facility] Last Admin: 10/25/24 08:59 Dose: 0.5 mg Magnesium Hydroxide (Milk Of Magnesia 30 Ml Oral.Susp) 30 ml PO DAILY PRN PRN Reason: Constipation Metformin HCl (Metformin Hcl 500 Mg Tablet) 500 mg PO BIDWM [facility] Last Admin: 10/25/24 09:00 Dose: 500 mg Metoprolol Succinate (Metoprolol Succinate Er 100 Mg Tab.Er.24h) 100 mg PO DAILY [facility]; Protocol Last Admin: 10/25/24 08:59 Dose: 100 mg Potassium Chloride (Potassium Chloride Er 20 Meq Tab.Er.Prt) 20 meq PO BID [facility] Last Admin: 10/25/24 09:00 Dose: 20 meq Risperidone (Risperidone 0.25 Mg Tablet) 0.25 mg PO TID [facility] Last Admin: 10/25/24 09:00 Dose: 0.25 mg Tiotropium [place] (Tiotropium [place] 2.5 Mcg 1 Puff/2.5 Mcg Mist.Inhal) 2 puff INHALE RDAILY [facility] Last Admin: 10/25/24 09:01 Dose: 2 puff Trazodone HCl (Trazodone Hcl 50 Mg Tablet) 50 mg PO BEDTIME MRX1 PRN PRN Reason: Insomnia Venlafaxine HCl (Venlafaxine Hcl Er 150 Mg Cap.Er.24h) 150 mg PO DAILY [facility] Last Admin: 10/25/24 09:10 Dose: 150 mg Allergies Allergies Allergy/AdvReac Type Severity Reaction Status Date / Time lisinopril AdvReac Cough Verified 10/23/24 09:22 sulfamethoxazole AdvReac Gastrointestinal Verified 10/23/24 09:22 [From Bactrim] Upset trimethoprim [From Bactrim] AdvReac Gastrointestinal Verified 10/23/24 09:22 Upset Assessment & Plan Assessment & Plan (1) Hypokalemia: Status: Acute Code(s): E87.6 - Hypokalemia Plan Pt is a 69-year-old female with a PMH significant for COPD, HTN, HLD, CKD 3, prediabetes, and depression?who is admitted to [facility] for increasing depression with vague SI. Medical consult for SOB, untreated diabetes, and hypokalemia of unclear etiology. Shortness a breath Patient is experiencing SOB at rest and with exertion times 3-4 days CXR negative Physical exam reveals mild coarse breath sounds Has not been using home inhalers while in the emergency room or on the [facility] psych unit until 2 hours ago Likely secondary to COPD and medication noncompliance Continue home inhalers Will place [facility] order for p.r.n. Hypokalemia Patient initially with mildly low potassium of 3.0 in the ED Reports poor p.o. intake of unclear duration Received no potassium supplementation while in the ED Repeat labs showed potassium mildly improved 3.1 earlier today Received 20 mEq p.o. pill Will give additional 40 mEq p.o. packet Follow up potassium tomorrow Prediabetes Patient's A1c elevated at 7.3 Sugars relatively well-controlled with POC of 135 and fasting glucose of 122 Will start on metformin 500 b.i.d. Encouraged diabetic diet and diabetic snacking Plan 1. Gather collateral information. 2. Continue with regular medications. 3. Reassessment with results Reason for continued inpatient stay Substantial Risk for: inability to function, rapid decompensation and med/psych decompensation Time Spent With Patient Time: Total time managing care of this patient today __20__ minutes.
[2024-10-25 20:00] VITALS: BP 149/77; PULSE 86; RESP 18; TEMP 36.6; O2SAT 92
[2024-10-25] MEDS: traZODone HCL 50 MG TABLET PO (21:10)
[2024-10-25] MEDS: Nystatin Powder 15 GM BOTTLE 1 APPL TOPICAL (21:29)
--- NOTE | 2024-10-25 23:47 | PC.ADMIT ---
Patient arrived on unit 10/25/24@2014 with a 12b, patient oriented to person and time of year, irritable, negative, resistive to care but redirectable, she is a 78yo transfer from [facility], d/t not caring for herself and not taking medications at [facility]. patient had been treated twice for lice and showered twice at [facility], they report she had been showering and taking her medications, patient declined shower saying she was dry and itchy and had showered a lot recently. skin check revealed no lice or eggs though patient has cuts, scabs and lesions all over body, 1 x 3/4 lesion on left breast, and an untreated breast mass c/f malignancy, patient was resistive to assessment saying i have a bad memory, why can't you remember that but was able to answer many questions, she reports no providers or contacts, per patient report no Hx ETOH or illicit drugs, is on 5-min safety checks and contracts for safety
[2024-10-26 08:00] VITALS: BP 126/60; PULSE 84; RESP 20; TEMP 36.6; O2SAT 97
[2024-10-26] MEDS: LORazepam 0.5 MG TABLET PO ×3 (08:57→20:36)
[2024-10-26] MEDS: Atorvastatin Calcium 20 MG TABLET PO (08:57)
[2024-10-26] MEDS: risperiDONE 0.25 MG TABLET PO ×3 (08:57→20:35)
[2024-10-26] MEDS: Venlafaxine HCl ER 150 MG CAP.ER.24H PO (08:57)
[2024-10-26] MEDS: Metoprolol Succinate ER 100 MG TAB.ER.24H PO (08:57)
[2024-10-26] MEDS: Potassium Chloride ER 20 MEQ TAB.ER.PRT PO ×2 (08:57→20:34)
[2024-10-26] MEDS: metFORMIN HCl 500 MG TABLET PO ×2 (08:59→17:09)
[2024-10-26] MEDS: Tiotropium Bromide 2.5 mcg 1 PUFF/2.5 MCG MIST.INHAL 2 PUFF INHALE (08:59)
[2024-10-26] MEDS: Fluticasone/Vilanterol 100/25 BLST.W.DEV 1 PUFF INHALE (08:59)
[2024-10-26] MEDS: Nystatin Powder 15 GM BOTTLE 1 APPL TOPICAL ×2 (08:59→20:35)
--- NOTE | 2024-10-26 13:59 | P.PNPSI_ITS ---
Subjective Subjective Date of Service: 10/26/24 Reason For Visit: SI Subjective Notes: Conditional Voluntary Interim History: Patient continues anxious depressed ruminating. Lethargic scattered and withdrawn spending much time in bed Was started on metformin by hospitalist service Medication Compliance: Yes Mental Status Exam Mental Status Exam Patient Appearance: Appropriate Patient Orientation: Person and Situation Level of Consciousness: Awake and Appropriate Patient Behavior: Guarded and Passive Mood Description: Withdrawn and Constricted Affect Description: Calm Patient Cognition Impaired: Yes Ability to Follow Directions: Good Speech Pattern: Clear Hallucinations: None Delusions: Not Present Thought Process: Distracted and Slowed Thinking Thought Content: positive for [place] and positive for Poverty of Content Depressive Symptoms: Thoughts of /Suicide and Difficulty Concentrating Judgement: Fair Judgement and Insight: Still has thought she might be better off Diagnostics Vital Signs (24Hr): Vital Signs - 24 hr 10/25/24 20:00 10/26/24 08:00 Temperature 98 F 97.8 F Pulse Rate 86 84 Respiratory Rate 18 20 Blood Pressure 149/77 H 126/60 Pulse Oximetry 92 97 Oxygen Delivery Method Room Air Room Air BMI result Body Mass Index 30.1 Labs 10/23/24 09:32 10/27/24 13:38 Labs: Laboratory Results - last 48 hr 10/25/24 10/25/24 08:26 08:29 Sodium 141 Potassium 3.5 Chloride 104 Carbon Dioxide 25 Anion Gap 16 Vitamin B12 1150 H Folate 17.3 Imaging Radiology Impressions: ITS Impressions Chest X-Ray 10/24/24 13:10 IMPRESSION: No acute cardiopulmonary process. Electronically signed by: Lynne Gray MD 10/24/2024 01:39 PM [facility] Medications Medications Current Medications Acetaminophen (Acetaminophen 325 Mg Tablet) 650 mg PO Q6H PRN PRN Reason: Headache/Pain Mild Scale (1-3) Al Hydroxide/Mg Hydroxide (Magnesium Hydrox/Alum Hydrox 30 Ml Oral.Susp) 30 ml PO Q6H PRN PRN Reason: Heartburn/Nausea Albuterol Sulfate (Albuterol Sulfate 90 Mcg 8 Gm Inhaler) 2 puff INHALE Q4H PRN PRN Reason: Asthma attack Atorvastatin Calcium (Atorvastatin Calcium 20 Mg Tablet) 20 mg PO DAILY [facility] Last Admin: 10/26/24 08:57 Dose: 20 mg Fluticasone/Vilanterol (Fluticasone/Vilanterol 100/25 Blst.W.Dev) 1 puff INHALE RDAILY [facility] Last Admin: 10/26/24 08:59 Dose: 1 puff Lorazepam (Lorazepam 0.5 Mg Tablet) 0.5 mg PO Q6H PRN PRN Reason: Anxiety Lorazepam (Lorazepam 0.5 Mg Tablet) 0.5 mg PO TID [facility] Last Admin: 10/26/24 08:57 Dose: 0.5 mg Magnesium Hydroxide (Milk Of Magnesia 30 Ml Oral.Susp) 30 ml PO DAILY PRN PRN Reason: Constipation Metformin HCl (Metformin Hcl 500 Mg Tablet) 500 mg PO BIDWM [facility] Last Admin: 10/26/24 08:59 Dose: 500 mg Metoprolol Succinate (Metoprolol Succinate Er 100 Mg Tab.Er.24h) 100 mg PO DAILY [facility]; Protocol Last Admin: 10/26/24 08:57 Dose: 100 mg Nystatin (Nystatin Powder 15 Gm Bottle) 1 appl TOPICAL BID [facility]; Protocol Last Admin: 10/26/24 08:59 Dose: 1 appl Potassium Chloride (Potassium Chloride Er 20 Meq Tab.Er.Prt) 20 meq PO BID [facility] Last Admin: 10/26/24 08:57 Dose: 20 meq Risperidone (Risperidone 0.25 Mg Tablet) 0.25 mg PO TID [facility] Last Admin: 10/26/24 08:57 Dose: 0.25 mg Tiotropium [place] (Tiotropium [place] 2.5 Mcg 1 Puff/2.5 Mcg Mist.Inhal) 2 puff INHALE RDAILY [facility] Last Admin: 10/26/24 08:59 Dose: 2 puff Trazodone HCl (Trazodone Hcl 50 Mg Tablet) 50 mg PO BEDTIME MRX1 PRN PRN Reason: Insomnia Last Admin: 10/25/24 21:10 Dose: 50 mg Venlafaxine HCl (Venlafaxine Hcl Er 150 Mg Cap.Er.24h) 150 mg PO DAILY [facility] Last Admin: 10/26/24 08:57 Dose: 150 mg Allergies Allergies Allergy/AdvReac Type Severity Reaction Status Date / Time lisinopril AdvReac Cough Verified 10/23/24 09:22 sulfamethoxazole AdvReac Gastrointestinal Verified 10/23/24 09:22 [From Bactrim] Upset trimethoprim [From Bactrim] AdvReac Gastrointestinal Verified 10/23/24 09:22 Upset Assessment & Plan Assessment & Plan (1) Hypokalemia: Status: Acute Code(s): E87.6 - Hypokalemia Plan Pt is a 69-year-old female with a PMH significant for COPD, HTN, HLD, CKD 3, prediabetes, and depression?who is admitted to [facility] for increasing depression with vague SI. Medical consult for SOB, untreated diabetes, and hypokalemia of unclear etiology. Shortness a breath Patient is experiencing SOB at rest and with exertion times 3-4 days CXR negative Physical exam reveals mild coarse breath sounds Has not been using home inhalers while in the emergency room or on the [facility] psych unit until 2 hours ago Likely secondary to COPD and medication noncompliance [facility] Hypokalemia Patient initially with mildly low potassium of 3.0 in the ED Reports poor p.o. intake of unclear duration Received no potassium supplementation while in the ED Repeat labs showed potassium mildly improved 3.1 earlier today Received 20 mEq p.o. pill Will give additional 40 mEq p.o. packet Follow up potassium tomorrow Prediabetes Patient's A1c elevated at 7.3 Sugars relatively well-controlled with POC of 135 and fasting glucose of 122 Will start on metformin 500 b.i.d. Encouraged diabetic diet and diabetic snacking Plan 1. Gather collateral information. 2. Continue with regular medications. 3. Reassessment with results 10/26/2024 Continue Risperdal and lorazepam education regarding prednisone induced mood instability and psychosis. Patient is somewhat more organized less distraught Reason for continued inpatient stay Substantial Risk for: harm to self, rapid decompensation and med/psych decompensation Time Spent With Patient Time: Total time managing care of this patient today ____ minutes.
[2024-10-26 20:00] VITALS: BP 131/61; PULSE 86; TEMP 36.1; O2SAT 97
[2024-10-26] MEDS: traZODone HCL 50 MG TABLET PO (20:36)
[2024-10-27] MEDS: Tiotropium Bromide 2.5 mcg 1 PUFF/2.5 MCG MIST.INHAL 2 PUFF INHALE (08:41)
[2024-10-27] MEDS: Fluticasone/Vilanterol 100/25 BLST.W.DEV 1 PUFF INHALE (08:41)
[2024-10-27 08:42] VITALS: BP 112/65; PULSE 84; RESP 14; TEMP 36.6; O2SAT 97
[2024-10-27] MEDS: metFORMIN HCl 500 MG TABLET PO ×2 (08:42→15:59)
[2024-10-27] MEDS: Metoprolol Succinate ER 100 MG TAB.ER.24H PO (08:45)
[2024-10-27] MEDS: Atorvastatin Calcium 20 MG TABLET PO (08:45)
[2024-10-27] MEDS: Potassium Chloride ER 20 MEQ TAB.ER.PRT PO (08:45)
[2024-10-27] MEDS: LORazepam 0.5 MG TABLET PO ×3 (08:45→20:23)
[2024-10-27] MEDS: Venlafaxine HCl ER 150 MG CAP.ER.24H PO (08:45)
[2024-10-27] MEDS: Nystatin Powder 15 GM BOTTLE 1 APPL TOPICAL (10:53)
[2024-10-27] MEDS: risperiDONE 0.25 MG TABLET PO (10:53)
[2024-10-27 14:03] LABS: Anion Gap 16 (12-20); Blood Urea Nitrogen 28 mg/dL (9-16); Calcium 9.4 mg/dL (8.4-10.2); Carbon Dioxide 21 mmol/L (22-29); Chloride 106 mmol/L (96-108); Estimated Glomerular Filt Rate 37; Glucose Random 143 mg/dL (60-115); Potassium 4.3 mmol/L (3.3-5.1); Sodium 139 mmol/L (135-145)
--- NOTE | 2024-10-27 17:05 | P.EN_ITS ---
Event Note Date of Service: 10/27/24 Event Note: Patient is a 69-year-old female with a PMH significant for COPD, HTN, HLD, prediabet, and depression who was admitted to [facility] psych unit with hospitalist consult for chronic diarrhea x1 month, altered mental status, and hypokalemia. Patient seen and evaluated at bedside where she reports has been experiencing 1 episode of loose stool daily for the past 4-5 days. Denies liquid diarrhea. No abdominal pain. Denies fever, chills, nausea, vomiting. Labs reviewed, grossly unremarkable and around baseline for patient. No significant electrolyte abnormalities. Potassium WNL at 4.3. Creatinine 1.40, mildly increased from prior. Abdominal exam benign with nondistended and nontender abdomen. Given benign physical exam, HPI, and labs, no indication for further workup for loose stool. If patient begins having multiple episodes of watery diarrhea, would pastor ggest ordering GI panel, C diff, and GI consult. For hypokalemia, potassium has increased from 3.5 on 10/25 24.3 today. Will decrease p.o. potassium supplementation from 20 mEq b.i.d. to 20 mEq daily. Time Spent With Patient Time: Total time managing care of this patient today ____ minutes.
[2024-10-27 19:36] VITALS: BP 113/72; PULSE 86; RESP 18; TEMP 36.4; O2SAT 97
[2024-10-27] MEDS: traZODone HCL 50 MG TABLET PO (20:23)
--- NOTE | 2024-10-27 22:28 | HO.PSYCHPN ---
Subjective Subjective Date of Service: 10/27/24 Reason For Visit: SI Subjective Notes: Conditional Voluntary Interim History: Patient seen with her today. She relates more of a history more organized of recurrent depression may have had an adverse effect to both increase venlafaxine to 225 mg and use of prednisone. Patient also describes chronic diarrhea Mental Status Exam Mental Status Exam Patient Appearance: Appropriate Patient Orientation: Person, Place and Situation Level of Consciousness: Awake and Appropriate Patient Behavior: Guarded, Passive and Fatigued Mood Description: Constricted and Depressed Affect Description: Depressed and Blunted Patient Cognition Impaired: Yes Ability to Follow Directions: Good Speech Pattern: Clear Hallucinations: None Delusions: Not Present Thought Process: Distracted and Slowed Thinking Thought Content: positive for [place] and positive for Poverty of Content Depressive Symptoms: Thoughts of /Suicide and Difficulty Concentrating Abnormal Motor Activity Signs and Symptoms: Tremors Judgement: Fair Judgement and Insight: Patient more organized in thought Still has thought she might be better off Diagnostics Vital Signs (24Hr): Vital Signs - 24 hr 10/27/24 08:42 10/27/24 19:36 Temperature 97.8 F 97.6 F Pulse Rate 84 86 Respiratory Rate 14 18 Blood Pressure 112/65 113/72 Pulse Oximetry 97 97 Oxygen Delivery Method Room Air Room Air BMI result Body Mass Index 30.1 Labs 10/23/24 09:32 10/27/24 13:38 Labs: Laboratory Results - last 48 hr 10/27/24 13:38 Sodium 139 Potassium 4.3 D Chloride 106 Carbon Dioxide 21 L Anion Gap 16 BUN 28 H Creatinine 1.40 Estim Creat Clear Calc 40.0 Estimated GFR 37 Random Glucose 143 H Calcium 9.4 Imaging Radiology Impressions: ITS Impressions Chest X-Ray 10/24/24 13:10 IMPRESSION: No acute cardiopulmonary process. Electronically signed by: Lynne Gray MD 10/24/2024 01:39 PM [facility] Medications Medications Current Medications Acetaminophen (Acetaminophen 325 Mg Tablet) 650 mg PO Q6H PRN PRN Reason: Headache/Pain Mild Scale (1-3) Al Hydroxide/Mg Hydroxide (Magnesium Hydrox/Alum Hydrox 30 Ml Oral.Susp) 30 ml PO Q6H PRN PRN Reason: Heartburn/Nausea Albuterol Sulfate (Albuterol Sulfate 90 Mcg 8 Gm Inhaler) 2 puff INHALE Q4H PRN PRN Reason: Asthma attack Aripiprazole (Aripiprazole 2 Mg Tablet) 2 mg PO DAILY [facility] Atorvastatin Calcium (Atorvastatin Calcium 20 Mg Tablet) 20 mg PO DAILY [facility] Last Admin: 10/27/24 08:45 Dose: 20 mg Fluticasone/Vilanterol (Fluticasone/Vilanterol 100/25 Blst.W.Dev) 1 puff INHALE RDAILY [facility] Last Admin: 10/27/24 08:41 Dose: 1 puff Lorazepam (Lorazepam 0.5 Mg Tablet) 0.5 mg PO Q6H PRN PRN Reason: Anxiety Lorazepam (Lorazepam 0.5 Mg Tablet) 0.5 mg PO TID [facility] Last Admin: 10/27/24 20:23 Dose: 0.5 mg Magnesium Hydroxide (Milk Of Magnesia 30 Ml Oral.Susp) 30 ml PO DAILY PRN PRN Reason: Constipation Metformin HCl (Metformin Hcl 500 Mg Tablet) 500 mg PO BIDWM [facility] Last Admin: 10/27/24 15:59 Dose: 500 mg Metoprolol Succinate (Metoprolol Succinate Er 100 Mg Tab.Er.24h) 100 mg PO DAILY [facility]; Protocol Last Admin: 10/27/24 08:45 Dose: 100 mg Nystatin (Nystatin Powder 15 Gm Bottle) 1 appl TOPICAL BID [facility]; Protocol Last Admin: 10/27/24 20:22 Dose: Not Given Potassium Chloride (Potassium Chloride Er 20 Meq Tab.Er.Prt) 20 meq PO DAILY [facility] Tiotropium [place] (Tiotropium [place] 2.5 Mcg 1 Puff/2.5 Mcg Mist.Inhal) 2 puff INHALE RDAILY [facility] Last Admin: 10/27/24 08:41 Dose: 2 puff Trazodone HCl (Trazodone Hcl 50 Mg Tablet) 50 mg PO BEDTIME MRX1 PRN PRN Reason: Insomnia Last Admin: 10/27/24 20:23 Dose: 50 mg Venlafaxine HCl (Venlafaxine Hcl Er 150 Mg Cap.Er.24h) 150 mg PO DAILY [facility] Last Admin: 10/27/24 08:45 Dose: 150 mg Allergies Allergies Allergy/AdvReac Type Severity Reaction Status Date / Time lisinopril AdvReac Cough Verified 10/23/24 09:22 sulfamethoxazole AdvReac Gastrointestinal Verified 10/23/24 09:22 [From Bactrim] Upset trimethoprim [From Bactrim] AdvReac Gastrointestinal Verified 10/23/24 09:22 Upset Assessment & Plan Assessment & Plan (1) Hypokalemia: Status: Acute Code(s): E87.6 - Hypokalemia Plan Pt is a 69-year-old female with a PMH significant for COPD, HTN, HLD, CKD 3, prediabetes, and depression?who is admitted to [facility] for increasing depression with vague SI. Medical consult for SOB, untreated diabetes, and hypokalemia of unclear etiology. Shortness a breath Patient is experiencing SOB at rest and with exertion times 3-4 days CXR negative Physical exam reveals mild coarse breath sounds Has not been using home inhalers while in the emergency room or on the [facility] psych unit until 2 hours ago Likely secondary to COPD and medication noncompliance Continue home inhalers Will place DuoNeb order for p.r.n. Hypokalemia Patient initially with mildly low potassium of 3.0 in the ED Reports poor p.o. intake of unclear duration Received no potassium supplementation while in the ED Repeat labs showed potassium mildly improved 3.1 earlier today Received 20 mEq p.o. pill Will give additional 40 mEq p.o. packet Follow up potassium tomorrow Prediabetes Patient's A1c elevated at 7.3 Sugars relatively well-controlled with POC of 135 and fasting glucose of 122 Will start on metformin 500 b.i.d. Encouraged diabetic diet and diabetic snacking Plan 1. Gather collateral information. 2. Continue with regular medications. 3. Reassessment with results 10/26/2024 Continue Risperdal and lorazepam education regarding prednisone induced mood instability and psychosis. Patient is somewhat more organized less distraught 10/27/2020 Recheck potassium in the morning change Risperdal to Abilify should also be helpful with prednisone induced agitation psychosis may be more helpful regarding depression. Might benefit from gradual decrease of lorazepam somewhat lethargic Patient educated on: diagnosis, medication risk/benefits and medical condition Informed Consent: understands and further education needed Reason for continued inpatient stay Substantial Risk for: harm to self and inability to function Time Spent With Patient Time: Total time managing care of this patient today ____ minutes.
[2024-10-28 08:05] VITALS: BP 120/68; PULSE 94; RESP 16; TEMP 36.6; O2SAT 96
[2024-10-28] MEDS: Atorvastatin Calcium 20 MG TABLET PO (08:12)
[2024-10-28] MEDS: Potassium Chloride ER 20 MEQ TAB.ER.PRT PO (08:12)
[2024-10-28] MEDS: Venlafaxine HCl ER 150 MG CAP.ER.24H PO (08:13)
[2024-10-28] MEDS: Metoprolol Succinate ER 100 MG TAB.ER.24H PO (08:13)
[2024-10-28] MEDS: LORazepam 0.5 MG TABLET PO ×3 (08:13→20:59)
[2024-10-28] MEDS: metFORMIN HCl 500 MG TABLET PO ×2 (08:14→16:18)
[2024-10-28] MEDS: Tiotropium Bromide 2.5 mcg 1 PUFF/2.5 MCG MIST.INHAL 2 PUFF INHALE (08:15)
[2024-10-28] MEDS: Fluticasone/Vilanterol 100/25 BLST.W.DEV 1 PUFF INHALE (08:15)
[2024-10-28] MEDS: Nystatin Powder 15 GM BOTTLE 1 APPL TOPICAL (08:18)
[2024-10-28] MEDS: ARIPiprazole 2 MG TABLET PO (08:56)
--- NOTE | 2024-10-28 09:19 | HO.PSYCHPN ---
Subjective Subjective Date of Service: 10/28/24 Reason For Visit: SI Subjective Notes: Conditional Voluntary Interim History: The nursing staff reported the patient complained of depression and anxiety 07/06 she has been tearful she took a shower last evening and she felt better. She admitted urinary urgency in the evening 3 or 4 times. Apparently the patient's mood worsened after she received prednisone for bronchitis. She slept well last night. On interview the patient reports some anxiety we will reorder UA Mental Status Exam Mental Status Exam Patient Appearance: Appropriate Patient Orientation: Person and Situation Level of Consciousness: Awake and Appropriate Patient Behavior: Guarded and Passive Mood Description: Withdrawn Affect Description: Constricted Patient Cognition Impaired: Yes Ability to Follow Directions: Good Speech Pattern: Clear Hallucinations: None Delusions: Ideas of Reference Thought Process: Distracted and Slowed Thinking Thought Content: positive for [place] and positive for Poverty of Content Judgement: Fair Diagnostics Vital Signs (24Hr): Vital Signs - 24 hr 10/27/24 19:36 10/28/24 08:05 Temperature 97.6 F 97.9 F Pulse Rate 86 94 Respiratory Rate 18 16 Blood Pressure 113/72 120/68 Pulse Oximetry 97 96 Oxygen Delivery Method Room Air Room Air BMI result Body Mass Index 30.1 Labs 10/23/24 09:32 10/28/24 08:29 Labs: Laboratory Results - last 48 hr 10/27/24 13:38 Sodium 139 Potassium 4.3 D Chloride 106 Carbon Dioxide 21 L Anion Gap 16 BUN 28 H Creatinine 1.40 Estim Creat Clear Calc 40.0 Estimated GFR 37 Random Glucose 143 H Calcium 9.4 Imaging Radiology Impressions: ITS Impressions Chest X-Ray 10/24/24 13:10 IMPRESSION: No acute cardiopulmonary process. Electronically signed by: Lynne Gray MD 10/24/2024 01:39 PM EST Medications Medications Current Medications Acetaminophen (Acetaminophen 325 Mg Tablet) 650 mg PO Q6H PRN PRN Reason: Headache/Pain Mild Scale (1-3) Al Hydroxide/Mg Hydroxide (Magnesium Hydrox/Alum Hydrox 30 Ml Oral.Susp) 30 ml PO Q6H PRN PRN Reason: Heartburn/Nausea Albuterol Sulfate (Albuterol Sulfate 90 Mcg 8 Gm Inhaler) 2 puff INHALE Q4H PRN PRN Reason: Asthma attack Aripiprazole (Aripiprazole 2 Mg Tablet) 2 mg PO DAILY [facility] Last Admin: 10/28/24 08:56 Dose: 2 mg Atorvastatin Calcium (Atorvastatin Calcium 20 Mg Tablet) 20 mg PO DAILY [facility] Last Admin: 10/28/24 08:12 Dose: 20 mg Fluticasone/Vilanterol (Fluticasone/Vilanterol 100/25 Blst.W.Dev) 1 puff INHALE RDAILY [facility] Last Admin: 10/28/24 08:15 Dose: 1 puff Lorazepam (Lorazepam 0.5 Mg Tablet) 0.5 mg PO Q6H PRN PRN Reason: Anxiety Lorazepam (Lorazepam 0.5 Mg Tablet) 0.5 mg PO TID [facility] Last Admin: 10/28/24 08:13 Dose: 0.5 mg Magnesium Hydroxide (Milk Of Magnesia 30 Ml Oral.Susp) 30 ml PO DAILY PRN PRN Reason: Constipation Metformin HCl (Metformin Hcl 500 Mg Tablet) 500 mg PO BIDWM [facility] Last Admin: 10/28/24 08:14 Dose: 500 mg Metoprolol Succinate (Metoprolol Succinate Er 100 Mg Tab.Er.24h) 100 mg PO DAILY [facility]; Protocol Last Admin: 10/28/24 08:13 Dose: 100 mg Nystatin (Nystatin Powder 15 Gm Bottle) 1 appl TOPICAL BID [facility]; Protocol Last Admin: 10/28/24 08:18 Dose: 1 appl Potassium Chloride (Potassium Chloride Er 20 Meq Tab.Er.Prt) 20 meq PO DAILY [facility] Last Admin: 10/28/24 08:12 Dose: 20 meq Tiotropium [place] (Tiotropium [place] 2.5 Mcg 1 Puff/2.5 Mcg Mist.Inhal) 2 puff INHALE RDAILY [facility] Last Admin: 10/28/24 08:15 Dose: 2 puff Trazodone HCl (Trazodone Hcl 50 Mg Tablet) 50 mg PO BEDTIME MRX1 PRN PRN Reason: Insomnia Last Admin: 10/27/24 20:23 Dose: 50 mg Venlafaxine HCl (Venlafaxine Hcl Er 150 Mg Cap.Er.24h) 150 mg PO DAILY [facility] Last Admin: 10/28/24 08:13 Dose: 150 mg Allergies Allergies Allergy/AdvReac Type Severity Reaction Status Date / Time lisinopril AdvReac Cough Verified 10/23/24 09:22 sulfamethoxazole AdvReac Gastrointestinal Verified 10/23/24 09:22 [From Bactrim] Upset trimethoprim [From Bactrim] AdvReac Gastrointestinal Verified 10/23/24 09:22 Upset Assessment & Plan Assessment & Plan (1) Hypokalemia: Status: Acute Code(s): E87.6 - Hypokalemia Plan Pt is a 69-year-old female with a PMH significant for COPD, HTN, HLD, CKD 3, prediabetes, and depression?who is admitted to [facility] for increasing depression with vague SI. Medical consult for SOB, untreated diabetes, and hypokalemia of unclear etiology. Shortness a breath Patient is experiencing SOB at rest and with exertion times 3-4 days CXR negative Physical exam reveals mild coarse breath sounds Has not been using home inhalers while in the emergency room or on the [facility] unit until 2 hours ago Likely secondary to COPD and medication noncompliance Continue home inhalers Will place DuoNeb order for p.r.n. Hypokalemia Patient initially with mildly low potassium of 3.0 in the ED Reports poor p.o. intake of unclear duration Received no potassium supplementation while in the ED Repeat labs showed potassium mildly improved 3.1 earlier today Received 20 mEq p.o. pill Will give additional 40 mEq p.o. packet Follow up potassium tomorrow Prediabetes Patient's A1c elevated at 7.3 Sugars relatively well-controlled with POC of 135 and fasting glucose of 122 Will start on metformin 500 b.i.d. Encouraged diabetic diet and diabetic snacking Plan 1. Gather collateral information. 2. Continue with regular medications. 3. Reassessment with results 4. Over the weekend of the end of September, Risperdal was changed to Abilify. Reason for continued inpatient stay Substantial Risk for: inability to function, rapid decompensation and med/psych decompensation Time Spent With Patient Time: Total time managing care of this patient today __20__ minutes.
[2024-10-28 09:37] LABS: Alanine Aminotransferase 68 U/L (0-31); Albumin Level 3.4 g/dL (3.5-5.0); Alkaline Phosphatase 77 U/L (39-117); Anion Gap 13 (12-20); Aspartate Amino Transferase 54 U/L (5-31); Bilirubin Total 0.4 mg/dL (0.0-1.0); Blood Urea Nitrogen 21 mg/dL (9-16); Calcium 8.6 mg/dL (8.4-10.2); Carbon Dioxide 26 mmol/L (22-29); Chloride 104 mmol/L (96-108); Creatinine Clr Calc Pharmacy 45.2; Estimated Glomerular Filt Rate 43; Glucose Fasting 110 mg/dL (60-99); Potassium 3.8 mmol/L (3.3-5.1); Sodium 139 mmol/L (135-145)
[2024-10-28 20:00] VITALS: BP 133/70; PULSE 92; RESP 16; TEMP 36.1; O2SAT 93
[2024-10-28] MEDS: traZODone HCL 50 MG TABLET PO (20:59)
[2024-10-29 08:32] VITALS: BP 130/67; PULSE 92; RESP 18; TEMP 36; O2SAT 95
[2024-10-29] MEDS: LORazepam 0.5 MG TABLET PO ×3 (08:36→20:44)
[2024-10-29] MEDS: Potassium Chloride ER 20 MEQ TAB.ER.PRT PO (08:36)
[2024-10-29] MEDS: Venlafaxine HCl ER 150 MG CAP.ER.24H PO (08:36)
[2024-10-29] MEDS: Atorvastatin Calcium 20 MG TABLET PO (08:36)
[2024-10-29] MEDS: metFORMIN HCl 500 MG TABLET PO ×2 (08:36→17:46)
[2024-10-29] MEDS: ARIPiprazole 2 MG TABLET PO (08:36)
[2024-10-29] MEDS: Metoprolol Succinate ER 100 MG TAB.ER.24H PO (08:36)
[2024-10-29] MEDS: Fluticasone/Vilanterol 100/25 BLST.W.DEV 1 PUFF INHALE (08:40)
[2024-10-29] MEDS: Tiotropium Bromide 2.5 mcg 1 PUFF/2.5 MCG MIST.INHAL 2 PUFF INHALE (08:42)
[2024-10-29] MEDS: Nystatin Powder 15 GM BOTTLE 1 APPL TOPICAL (11:35)
[2024-10-29 12:28] VITALS: BP 130/67; PULSE 92; O2SAT 95
--- NOTE | 2024-10-29 16:11 | P.PNPSI_ITS ---
Subjective Subjective Date of Service: 10/29/24 Reason For Visit: SI Subjective Notes: Conditional Voluntary Interim History: The nursing staff reported the patient feelings better she was incontinent of stool. Slept well last night. The social worker health services reported that we will have a family meeting tomorrow. The patient wants to leave as soon as possible she states that she feels much better. On interview the patient denies new symptoms she states that she feels better but she looks disheveled. Mental Status Exam Mental Status Exam Patient Appearance: Appropriate Patient Orientation: Person and Situation Level of Consciousness: Awake and Appropriate Patient Behavior: Guarded and Passive Mood Description: Withdrawn Affect Description: Constricted Patient Cognition Impaired: Yes Ability to Follow Directions: Good Speech Pattern: Clear Hallucinations: None Delusions: Not Present Thought Process: Distracted and Slowed Thinking Thought Content: positive for [place] and positive for Poverty of Content Judgement: Fair Diagnostics Vital Signs (24Hr): Vital Signs - 24 hr 10/28/24 20:00 10/29/24 08:32 10/29/24 12:28 Temperature 97 F 96.8 F Pulse Rate 92 92 92 Respiratory Rate 16 18 Blood Pressure 133/70 130/67 130/67 Pulse Oximetry 93 95 95 Oxygen Delivery Method Room Air Room Air BMI result Body Mass Index 30.1 Labs 10/23/24 09:32 10/28/24 08:29 Labs: Laboratory Results - last 48 hr 10/28/24 08:29 Sodium 139 Potassium 3.8 Chloride 104 Carbon Dioxide 26 Anion Gap 13 BUN 21 H Creatinine 1.24 Estim Creat Clear Calc 45.2 Estimated GFR 43 Fasting Glucose 110 H Calcium 8.6 D Total Bilirubin 0.4 AST 54 H ALT 68 H Alkaline Phosphatase 77 Total Protein 6.0 L Albumin 3.4 L Imaging Radiology Impressions: ITS Impressions Chest X-Ray 10/24/24 13:10 IMPRESSION: No acute cardiopulmonary process. Electronically signed by: Lynne Gray MD 10/24/2024 01:39 PM [facility] Medications Medications Current Medications Acetaminophen (Acetaminophen 325 Mg Tablet) 650 mg PO Q6H PRN PRN Reason: Headache/Pain Mild Scale (1-3) Al Hydroxide/Mg Hydroxide (Magnesium Hydrox/Alum Hydrox 30 Ml Oral.Susp) 30 ml PO Q6H PRN PRN Reason: Heartburn/Nausea Albuterol Sulfate (Albuterol Sulfate 90 Mcg 8 Gm Inhaler) 2 puff INHALE Q4H PRN PRN Reason: Asthma attack Aripiprazole (Aripiprazole 2 Mg Tablet) 2 mg PO DAILY [facility] Last Admin: 10/29/24 08:36 Dose: 2 mg Atorvastatin Calcium (Atorvastatin Calcium 20 Mg Tablet) 20 mg PO DAILY [facility] Last Admin: 10/29/24 08:36 Dose: 20 mg Fluticasone/Vilanterol (Fluticasone/Vilanterol 100/25 Blst.W.Dev) 1 puff INHALE RDAILY [facility] Last Admin: 10/29/24 08:40 Dose: 1 puff Lorazepam (Lorazepam 0.5 Mg Tablet) 0.5 mg PO Q6H PRN PRN Reason: Anxiety Lorazepam (Lorazepam 0.5 Mg Tablet) 0.5 mg PO TID [facility] Last Admin: 10/29/24 15:25 Dose: 0.5 mg Magnesium Hydroxide (Milk Of Magnesia 30 Ml Oral.Susp) 30 ml PO DAILY PRN PRN Reason: Constipation Metformin HCl (Metformin Hcl 500 Mg Tablet) 500 mg PO BIDWM [facility] Last Admin: 10/29/24 08:36 Dose: 500 mg Metoprolol Succinate (Metoprolol Succinate Er 100 Mg Tab.Er.24h) 100 mg PO DAILY [facility]; Protocol Last Admin: 10/29/24 08:36 Dose: 100 mg Nystatin (Nystatin Powder 15 Gm Bottle) 1 appl TOPICAL BID [facility]; Protocol Last Admin: 10/29/24 11:35 Dose: 1 appl Potassium Chloride (Potassium Chloride Er 20 Meq Tab.Er.Prt) 20 meq PO DAILY [facility] Last Admin: 10/29/24 08:36 Dose: 20 meq Tiotropium [place] (Tiotropium [place] 2.5 Mcg 1 Puff/2.5 Mcg Mist.Inhal) 2 puff INHALE RDAILY [facility] Last Admin: 10/29/24 08:42 Dose: 2 puff Trazodone HCl (Trazodone Hcl 50 Mg Tablet) 50 mg PO BEDTIME MRX1 PRN PRN Reason: Insomnia Last Admin: 10/28/24 20:59 Dose: 50 mg Venlafaxine HCl (Venlafaxine Hcl Er 150 Mg Cap.Er.24h) 150 mg PO DAILY [facility] Last Admin: 10/29/24 08:36 Dose: 150 mg Allergies Allergies Allergy/AdvReac Type Severity Reaction Status Date / Time lisinopril AdvReac Cough Verified 10/23/24 09:22 sulfamethoxazole AdvReac Gastrointestinal Verified 10/23/24 09:22 [From Bactrim] Upset trimethoprim [From Bactrim] AdvReac Gastrointestinal Verified 10/23/24 09:22 Upset Assessment & Plan Assessment & Plan (1) Hypokalemia: Status: Acute Code(s): E87.6 - Hypokalemia Plan Pt is a 69-year-old female with a PMH significant for COPD, HTN, HLD, CKD 3, prediabetes, and depression?who is admitted to [facility] for increasing depression with vague SI. Medical consult for SOB, untreated diabetes, and hypokalemia of unclear etiology. Shortness a breath Patient is experiencing SOB at rest and with exertion times 3-4 days CXR negative Physical exam reveals mild coarse breath sounds Has not been using home inhalers while in the emergency room or on the [facility] unit until 2 hours ago Likely secondary to COPD and medication noncompliance Continue home inhalers [facility] Hypokalemia Patient initially with mildly low potassium of 3.0 in the ED Reports poor p.o. intake of unclear duration Received no potassium supplementation while in the ED Repeat labs showed potassium mildly improved 3.1 earlier today Received 20 mEq p.o. pill Will give additional 40 mEq p.o. packet Follow up potassium tomorrow Prediabetes Patient's A1c elevated at 7.3 Sugars relatively well-controlled with POC of 135 and fasting glucose of 122 Will start on metformin 500 b.i.d. Encouraged diabetic diet and diabetic snacking Plan 1. Gather collateral information. 2. Continue with regular medications. 3. Reassessment with results 4. Over the weekend of the end of September, Risperdal was changed to Abilify. Reason for continued inpatient stay Substantial Risk for: inability to function, rapid decompensation and med/psych decompensation Time Spent With Patient Time: Total time managing care of this patient today __20__ minutes.
[2024-10-29 20:00] VITALS: BP 133/91; PULSE 110; RESP 17; TEMP 36.1; O2SAT 96
[2024-10-29] MEDS: traZODone HCL 50 MG TABLET PO (20:44)
[2024-10-30 07:55] VITALS: BP 120/62; PULSE 85; RESP 18; TEMP 36.6; O2SAT 95
[2024-10-30 07:56] LABS: Glucose, Whole Blood 126 mg/dL (60-115)
[2024-10-30] MEDS: metFORMIN HCl 500 MG TABLET PO ×2 (08:10→16:07)
[2024-10-30] MEDS: Venlafaxine HCl ER 150 MG CAP.ER.24H PO (08:10)
[2024-10-30] MEDS: LORazepam 0.5 MG TABLET PO ×3 (08:10→21:17)
[2024-10-30] MEDS: Potassium Chloride ER 20 MEQ TAB.ER.PRT PO (08:10)
[2024-10-30] MEDS: Atorvastatin Calcium 20 MG TABLET PO (08:10)
[2024-10-30] MEDS: Tiotropium Bromide 2.5 mcg 1 PUFF/2.5 MCG MIST.INHAL 2 PUFF INHALE ×2 (08:11→08:18)
[2024-10-30] MEDS: Metoprolol Succinate ER 100 MG TAB.ER.24H PO (08:11)
[2024-10-30] MEDS: Nystatin Powder 15 GM BOTTLE 1 APPL TOPICAL (08:11)
[2024-10-30] MEDS: ARIPiprazole 2 MG TABLET PO (08:19)
--- NOTE | 2024-10-30 12:18 | HO.PSYCHPN ---
Subjective Subjective Date of Service: 10/30/24 Reason For Visit: SI Subjective Notes: Conditional Voluntary Interim History: The nursing staff reported the patient presented with flat affect, she ate poorly breakfast or lunch but she ate little more on dinner. She has been medication compliant. She had visitors yesterday and she was tearful when they left. She slept well last night. Today we had a family meeting with her and explained the situation and aftercare plans. The occupational therapist did a [place] test and she scored low with an Roland test below 4th. We are going to start Aricept tonight. Mental Status Exam Mental Status Exam Patient Appearance: Appropriate Patient Orientation: Person and Situation Level of Consciousness: Awake and Appropriate Patient Behavior: Guarded and Passive Mood Description: Withdrawn Affect Description: Constricted Ability to Follow Directions: Fair Speech Pattern: Clear Hallucinations: None Delusions: Ideas of Reference Thought Process: Distracted and Slowed Thinking Thought Content: positive for [place] and positive for Poverty of Content Judgement: Fair Diagnostics Vital Signs (24Hr): Vital Signs - 24 hr 10/29/24 12:28 10/29/24 20:00 10/30/24 07:55 Temperature 97 F 97.9 F Pulse Rate 92 110 H 85 Respiratory Rate 17 18 Blood Pressure 130/67 133/91 H 120/62 Pulse Oximetry 95 96 95 Oxygen Delivery Method Room Air Room Air BMI result Body Mass Index 30.1 Labs 10/23/24 09:32 10/28/24 08:29 Labs: Laboratory Results - last 48 hr 10/30/24 07:52 POC Glucose 126 H Imaging Radiology Impressions: ITS Impressions Chest X-Ray 10/24/24 13:10 IMPRESSION: No acute cardiopulmonary process. Electronically signed by: Lynne Gray MD 10/24/2024 01:39 PM [facility] Medications Medications Current Medications Acetaminophen (Acetaminophen 325 Mg Tablet) 650 mg PO Q6H PRN PRN Reason: Headache/Pain Mild Scale (1-3) Al Hydroxide/Mg Hydroxide (Magnesium Hydrox/Alum Hydrox 30 Ml Oral.Susp) 30 ml PO Q6H PRN PRN Reason: Heartburn/Nausea Albuterol Sulfate (Albuterol Sulfate 90 Mcg 8 Gm Inhaler) 2 puff INHALE Q4H PRN PRN Reason: Asthma attack Aripiprazole (Aripiprazole 2 Mg Tablet) 2 mg PO DAILY [facility] Last Admin: 10/30/24 08:19 Dose: 2 mg Atorvastatin Calcium (Atorvastatin Calcium 20 Mg Tablet) 20 mg PO DAILY [facility] Last Admin: 10/30/24 08:10 Dose: 20 mg Fluticasone/Vilanterol (Fluticasone/Vilanterol 100/25 Blst.W.Dev) 1 puff INHALE RDAILY [facility] Last Admin: 10/30/24 08:19 Dose: Not Given Lorazepam (Lorazepam 0.5 Mg Tablet) 0.5 mg PO Q6H PRN PRN Reason: Anxiety Lorazepam (Lorazepam 0.5 Mg Tablet) 0.5 mg PO TID [facility] Last Admin: 10/30/24 08:10 Dose: 0.5 mg Magnesium Hydroxide (Milk Of Magnesia 30 Ml Oral.Susp) 30 ml PO DAILY PRN PRN Reason: Constipation Metformin HCl (Metformin Hcl 500 Mg Tablet) 500 mg PO BIDWM [facility] Last Admin: 10/30/24 08:10 Dose: 500 mg Metoprolol Succinate (Metoprolol Succinate Er 100 Mg Tab.Er.24h) 100 mg PO DAILY [facility]; Protocol Last Admin: 10/30/24 08:11 Dose: 100 mg Nystatin (Nystatin Powder 15 Gm Bottle) 1 appl TOPICAL BID [facility]; Protocol Last Admin: 10/30/24 08:11 Dose: 1 appl Potassium Chloride (Potassium Chloride Er 20 Meq Tab.Er.Prt) 20 meq PO DAILY [facility] Last Admin: 10/30/24 08:10 Dose: 20 meq Tiotropium [place] (Tiotropium [place] 2.5 Mcg 1 Puff/2.5 Mcg Mist.Inhal) 2 puff INHALE RDAILY [facility] Last Admin: 10/30/24 08:18 Dose: 2 puff Trazodone HCl (Trazodone Hcl 50 Mg Tablet) 50 mg PO BEDTIME MRX1 PRN PRN Reason: Insomnia Last Admin: 10/29/24 20:44 Dose: 50 mg Venlafaxine HCl (Venlafaxine Hcl Er 150 Mg Cap.Er.24h) 150 mg PO DAILY [facility] Last Admin: 10/30/24 08:10 Dose: 150 mg Allergies Allergies Allergy/AdvReac Type Severity Reaction Status Date / Time lisinopril AdvReac Cough Verified 10/23/24 09:22 sulfamethoxazole AdvReac Gastrointestinal Verified 10/23/24 09:22 [From Bactrim] Upset trimethoprim [From Bactrim] AdvReac Gastrointestinal Verified 10/23/24 09:22 Upset Assessment & Plan Assessment & Plan (1) Substance or medication-induced anxiety disorder: Status: Acute Code(s): F19.980 - Other psychoactive substance use, unspecified with psychoactive substance-induced anxiety disorder (2) Major depressive disorder, recurrent severe without psychotic features: Status: Acute Code(s): F33.2 - Major depressive disorder, recurrent severe without psychotic features (3) Hypokalemia: Status: Acute Code(s): E87.6 - Hypokalemia Plan Pt is a 69-year-old female with a PMH significant for COPD, HTN, HLD, CKD 3, prediabetes, and depression?who is admitted to [facility] for increasing depression with vague SI. Medical consult for SOB, untreated diabetes, and hypokalemia of unclear etiology. Shortness a breath Patient is experiencing SOB at rest and with exertion times 3-4 days CXR negative Physical exam reveals mild coarse breath sounds Has not been using home inhalers while in the emergency room or on the [facility] unit until 2 hours ago Likely secondary to COPD and medication noncompliance Continue home inhalers Will place DuoNe order for p.r.n. Hypokalemia Patient initially with mildly low potassium of 3.0 in the ED Reports poor p.o. intake of unclear duration Received no potassium supplementation while in the ED Repeat labs showed potassium mildly improved 3.1 earlier today Received 20 mEq p.o. pill Will give additional 40 mEq p.o. packet Follow up potassium tomorrow Prediabetes Patient's A1c elevated at 7.3 Sugars relatively well-controlled with POC of 135 and fasting glucose of 122 Will start on metformin 500 b.i.d. Encouraged diabetic diet and diabetic snacking Plan 1. Gather collateral information. 2. Continue with regular medications. 3. Reassessment with results 4. Over the weekend of the end of September, Risperdal was changed to Abilify. 5. Abilify will be increased to 5 mg p.o. q.a.m. starting October 31. 6. Start Aricept 5 mg p.o. q.h.s. to target dementia. Reason for continued inpatient stay Substantial Risk for: inability to function, rapid decompensation and med/psych decompensation Time Spent With Patient Time: Total time managing care of this patient today ___20_ minutes.
[2024-10-30 20:00] VITALS: BP 135/82; PULSE 91; RESP 16; TEMP 36.8; O2SAT 96
[2024-10-30] MEDS: traZODone HCL 50 MG TABLET PO (21:17)
[2024-10-30] MEDS: Donepezil HCl 5 MG TABLET PO (21:17)
[2024-10-31 08:00] VITALS: BP 121/77; PULSE 96; RESP 18; TEMP 36.9; O2SAT 96
[2024-10-31] MEDS: Fluticasone/Vilanterol 100/25 BLST.W.DEV 1 PUFF INHALE (08:17)
[2024-10-31] MEDS: Metoprolol Succinate ER 100 MG TAB.ER.24H PO (08:18)
[2024-10-31] MEDS: Venlafaxine HCl ER 150 MG CAP.ER.24H PO (08:18)
[2024-10-31] MEDS: ARIPiprazole 5 MG TABLET PO (08:19)
[2024-10-31] MEDS: LORazepam 0.5 MG TABLET PO ×3 (08:19→20:21)
[2024-10-31] MEDS: Atorvastatin Calcium 20 MG TABLET PO (08:19)
[2024-10-31] MEDS: metFORMIN HCl 500 MG TABLET PO ×2 (08:19→16:24)
[2024-10-31] MEDS: Nystatin Powder 15 GM BOTTLE 1 APPL TOPICAL (08:26)
[2024-10-31] MEDS: Potassium Chloride ER 20 MEQ TAB.ER.PRT PO (09:05)
--- NOTE | 2024-10-31 13:28 | P.PNPSI_ITS ---
Subjective Subjective Date of Service: 10/31/24 Reason For Visit: SI Subjective Notes: Conditional Voluntary Interim History: The nursing staff reported the patient had being compliant with treatment, she had been more redirectable. She is aware that she is going to be discharged tomorrow still slightly anxious but more manageable now. She feels better. Mental Status Exam Mental Status Exam Patient Appearance: Appropriate Patient Orientation: Person and Situation Level of Consciousness: Awake and Appropriate Patient Behavior: Guarded and Passive Mood Description: Withdrawn Affect Description: Constricted Patient Cognition Impaired: Yes Ability to Follow Directions: Good Speech Pattern: Clear Hallucinations: None Delusions: Not Present Thought Process: Distracted and Slowed Thinking Thought Content: positive for [place] and positive for Poverty of Content Judgement: Fair Diagnostics Vital Signs (24Hr): Vital Signs - 24 hr 10/30/24 20:00 10/31/24 08:00 Temperature 98.2 F 98.4 F Pulse Rate 91 96 Respiratory Rate 16 18 Blood Pressure 135/82 121/77 Pulse Oximetry 96 96 Oxygen Delivery Method Room Air Room Air BMI result Body Mass Index 30.1 Labs 10/23/24 09:32 10/28/24 08:29 Labs: Laboratory Results - last 48 hr 10/30/24 07:52 POC Glucose 126 H Imaging Radiology Impressions: ITS Impressions Chest X-Ray 10/24/24 13:10 IMPRESSION: No acute cardiopulmonary process. Electronically signed by: Lynne Gray MD 10/24/2024 01:39 PM [facility] Medications Medications Current Medications Acetaminophen (Acetaminophen 325 Mg Tablet) 650 mg PO Q6H PRN PRN Reason: Headache/Pain Mild Scale (1-3) Al Hydroxide/Mg Hydroxide (Magnesium Hydrox/Alum Hydrox 30 Ml Oral.Susp) 30 ml PO Q6H PRN PRN Reason: Heartburn/Nausea Albuterol Sulfate (Albuterol Sulfate 90 Mcg 8 Gm Inhaler) 2 puff INHALE Q4H PRN PRN Reason: Asthma attack Aripiprazole (Aripiprazole 5 Mg Tablet) 5 mg PO DAILY [facility] Last Admin: 10/31/24 08:19 Dose: 5 mg Atorvastatin Calcium (Atorvastatin Calcium 20 Mg Tablet) 20 mg PO DAILY [facility] Last Admin: 10/31/24 08:19 Dose: 20 mg Donepezil HCl (Donepezil Hcl 5 Mg Tablet) 5 mg PO BEDTIME [facility] Last Admin: 10/30/24 21:17 Dose: 5 mg Fluticasone/Vilanterol (Fluticasone/Vilanterol 100/25 Blst.W.Dev) 1 puff INHALE RDAILY [facility] Last Admin: 10/31/24 08:17 Dose: 1 puff Lorazepam (Lorazepam 0.5 Mg Tablet) 0.5 mg PO Q6H PRN PRN Reason: Anxiety Lorazepam (Lorazepam 0.5 Mg Tablet) 0.5 mg PO TID [facility] Last Admin: 10/31/24 08:19 Dose: 0.5 mg Magnesium Hydroxide (Milk Of Magnesia 30 Ml Oral.Susp) 30 ml PO DAILY PRN PRN Reason: Constipation Metformin HCl (Metformin Hcl 500 Mg Tablet) 500 mg PO BIDWM [facility] Last Admin: 10/31/24 08:19 Dose: 500 mg Metoprolol Succinate (Metoprolol Succinate Er 100 Mg Tab.Er.24h) 100 mg PO DAILY [facility]; Protocol Last Admin: 10/31/24 08:18 Dose: 100 mg Nystatin (Nystatin Powder 15 Gm Bottle) 1 appl TOPICAL BID [facility]; Protocol Last Admin: 10/31/24 08:26 Dose: 1 appl Potassium Chloride (Potassium Chloride Er 20 Meq Tab.Er.Prt) 20 meq PO DAILY [facility] Last Admin: 10/31/24 09:05 Dose: 20 meq Tiotropium [place] (Tiotropium [place] 2.5 Mcg 1 Puff/2.5 Mcg Mist.Inhal) 2 puff INHALE RDAILY [facility] Last Admin: 10/30/24 08:18 Dose: 2 puff Trazodone HCl (Trazodone Hcl 50 Mg Tablet) 50 mg PO BEDTIME MRX1 PRN PRN Reason: Insomnia Last Admin: 10/30/24 21:17 Dose: 50 mg Venlafaxine HCl (Venlafaxine Hcl Er 150 Mg Cap.Er.24h) 150 mg PO DAILY [facility] Last Admin: 10/31/24 08:18 Dose: 150 mg Allergies Allergies Allergy/AdvReac Type Severity Reaction Status Date / Time lisinopril AdvReac Cough Verified 10/23/24 09:22 sulfamethoxazole AdvReac Gastrointestinal Verified 10/23/24 09:22 [From Bactrim] Upset trimethoprim [From Bactrim] AdvReac Gastrointestinal Verified 11/27/24 09:22 Upset Assessment & Plan Assessment & Plan (1) Substance or medication-induced anxiety disorder: Status: Acute Code(s): F19.980 - Other psychoactive substance use, unspecified with psychoactive substance-induced anxiety disorder (2) Major depressive disorder, recurrent severe without psychotic features: Status: Acute Code(s): F33.2 - Major depressive disorder, recurrent severe without psychotic features (3) Hypokalemia: Status: Acute Code(s): E87.6 - Hypokalemia Plan Pt is a 69-year-old female with a PMH significant for COPD, HTN, HLD, CKD 3, prediabetes, and depression?who is admitted to [facility] for increasing depression with vague SI. Medical consult for SOB, untreated diabetes, and hypokalemia of unclear etiology. Shortness a breath Patient is experiencing SOB at rest and with exertion times 3-4 days CXR negative Physical exam reveals mild coarse breath sounds Has not been using home inhalers while in the emergency room or on the [facility] unit until 2 hours ago Likely secondary to COPD and medication noncompliance Continue home inhalers Will place DuoNe order for p.r.n. Hypokalemia Patient initially with mildly low potassium of 3.0 in the ED Reports poor p.o. intake of unclear duration Received no potassium supplementation while in the ED Repeat labs showed potassium mildly improved 3.1 earlier today Received 20 mEq p.o. pill Will give additional 40 mEq p.o. packet Follow up potassium tomorrow Prediabetes Patient's A1c elevated at 7.3 Sugars relatively well-controlled with POC of 135 and fasting glucose of 122 Will start on metformin 500 b.i.d. Encouraged diabetic diet and diabetic snacking Plan 1. Gather collateral information. 2. Continue with regular medications. 3. Reassessment with results 4. Over the weekend of the end of September, Risperdal was changed to Abilify. 5. Abilify will be increased to 5 mg p.o. q.a.m. starting October 31. 6. Start Aricept 5 mg p.o. q.h.s. to target dementia. She scored very low on the [place], and her Roland test was also suboptimal 7. Discharge tomorrow Reason for continued inpatient stay Substantial Risk for: inability to function, rapid decompensation and med/psych decompensation Time Spent With Patient Time: Total time managing care of this patient today ___20_ minutes.
[2024-10-31 20:00] VITALS: BP 142/66; PULSE 82; RESP 18; TEMP 36.1; O2SAT 98
[2024-10-31] MEDS: traZODone HCL 50 MG TABLET PO (20:21)
[2024-10-31] MEDS: Donepezil HCl 5 MG TABLET PO (20:21)
--- NOTE | 2024-11-01 07:32 | PM.PSYDC ---
DS: Providers Provider Date of Service: 11/01/24 Date of admission: 10/23/24 15:22 Date of discharge: 11/01/24 Primary care physician: Shon Tolliver MD Consults: 10/24/24 12:32 Consult to Hospitalist Routine Comment: Consulting Provider: [facility] Hospitalists Reason For Exam: sob, untreated diabetes,hypokalemia ? etiology 10/27/24 10:29 Consult to Hospitalist Routine Comment: Consulting Provider: [facility] Hospitalists Reason For Exam: chronic diarrhea alt mental status hypokalemia DS: Diagnosis Discharge Diagnosis (1) Substance or medication-induced anxiety disorder: Status: Acute (2) Major depressive disorder, recurrent severe without psychotic features: Status: Acute (3) Hypokalemia: Status: Acute DS: Medications Discharge Medications Home Medications: Home Medications ?Medication ?Instructions ?Recorded ?Confirmed venlafaxine 75 mg capsule,extended 225 mg PO DAILY 06/21/24 10/23/24 release 24 hr hydroxyzine HCl 25 mg tablet 25 mg PO TID 10/23/24 10/23/24 lorazepam 1 mg tablet 0.5 mg PO TID PRN Anxiety 10/23/24 10/23/24 metoclopramide HCl 10 mg tablet 10 mg PO BID 10/23/24 10/23/24 Previous Rx's ?Medication ?Instructions ?Recorded albuterol sulfate 90 mcg/actuation 2 puff inhalation Q4H PRN Asthma 10/31/24 aerosol inhaler (Ventolin HFA) attack 30 days #1 inhaler aripiprazole 5 mg tablet (Abilify) 5 mg PO DAILY 30 days #30 tabs 10/31/24 donepezil 5 mg tablet 5 mg PO BEDTIME 30 days #30 tabs 10/31/24 fluticasone 250 mcg-salmeterol 50 1 ea inhalation BID 30 days #60 ea 10/31/24 mcg/dose blistr powdr for inhalation (Lindsay Inharely) lorazepam 0.5 mg tablet 0.5 mg PO TID 30 days #90 tabs 10/31/24 metformin 500 mg tablet 500 mg PO BIDWM 30 days #60 tabs 10/31/24 metoprolol succinate 100 mg 100 mg PO DAILY 30 days #30 tabs 10/31/24 tablet,extended release 24 hr nystatin 100,000 unit/gram topical 1 appl topical BID 30 days #5 grams 10/31/24 powder potassium chloride 20 mEq 20 meq PO DAILY 30 days #30 tabs 10/31/24 tablet,extended release(part/cryst) simvastatin 40 mg tablet 40 mg PO BEDTIME 30 days #30 tabs 10/31/24 tiotropium bromide 18 mcg capsule 1 cap inhalation DAILY 30 days #30 10/31/24 with inhalation device ea trazodone 100 mg tablet 100 mg PO BEDTIME 30 days #30 tabs 10/31/24 venlafaxine 150 mg 150 mg PO DAILY 30 days #30 caps 10/31/24 capsule,extended release 24 hr Mental Status Exam Mental Status Exam Patient Appearance: Well Grooomed and Appropriate Patient Orientation: Person and Situation Level of Consciousness: Awake and Appropriate Patient Behavior: Guarded and Passive Mood Description: Withdrawn Affect Description: Constricted Patient Cognition Impaired: Yes Ability to Follow Directions: Good Speech Pattern: Clear Hallucinations: None Delusions: Not Present Thought Process: Distracted and Slowed Thinking Thought Content: positive for [place] and positive for Poverty of Content Judgement: Fair Data Data Completed and Pending Completed studies during hospitalization [Text1]: 10/25/24 10/25/24 10/27/24 08:26 08:29 13:38 Sodium 141 139 Potassium 3.5 4.3 D Chloride 104 106 Carbon Dioxide 25 21 L Anion Gap 16 16 BUN 28 H Creatinine 1.40 Estim Creat Clear Calc 40.0 Estimated GFR 37 POC Glucose Random Glucose 143 H Fasting Glucose Calcium 9.4 Total Bilirubin AST ALT Alkaline Phosphatase Total Protein Albumin Vitamin B12 1150 H Folate 17.3 10/28/24 10/30/24 08:29 07:52 Sodium 139 Potassium 3.8 Chloride 104 Carbon Dioxide 26 Anion Gap 13 BUN 21 H Creatinine 1.24 Estim Creat Clear Calc 45.2 Estimated GFR 43 POC Glucose 126 H Random Glucose Fasting Glucose 110 H Calcium 8.6 D Total Bilirubin 0.4 AST 54 H ALT 68 H Alkaline Phosphatase 77 Total Protein 6.0 L Albumin 3.4 L Vitamin B12 Folate 10/23/24 Unknown Urine clean catch - Clean Catch Midstream Urine Culture - Final Imaging Diagnostic Imaging Impressions Chest X-Ray 10/24/24 13:10 IMPRESSION: No acute cardiopulmonary process. Electronically signed by: Lynne Gray MD 10/24/2024 01:39 PM [facility] DS: Summary Hospital Course Hospital Course: The patient is a 69-year-old female, , with COPD, major depressive disorder severe with psychotic features who was referred to the emergency room after the patient decompensated in the context of receiving corticosteroids due to COPD exacerbation. She became very labile, with exacerbation of depressed mood, frequent crying spells and unable to function. She was rushed over emergency room, assessed by crisis and transferring to this facility for psychiatric stabilization. Please see the HPI of the admission note for further details. On admission, the patient was severely anxious, we review her list of medications and we decided to lower her Effexor XR from 225 mg to 150 mg daily since it could worsen her anxiety. Also we decided to change her Ativan from p.r.n. to standing 0.5 p.o. t.i.d. to target anxiety. Eventually, we decided to change her Risperdal to Abilify with for tolerability. When she was in the unit the patient was very anxious but able to go to groups participate and she was future oriented. Cognitive testing was done and she scored quite low on the [place] test and an in the [place] so we decided to start Aricept 5 mg p.o. q.h.s. with for tolerability. We have several family meetings the patient improved but still she has some residual symptoms. Her is fully aware of the need of continuation of psychiatric care. Since there were no safety concerns discharge planning was discussed. Time spent discussing smoking cessation with patient: 3 to 10 minutes Status at Discharge Cognitive/behavioral status at discharge: Impaired at baseline Functional status at discharge: independent ambulation Overall status at discharge: patient is back to baseline Time Spent with Patient Time attestation: Total time managing care of this patient today _30___ minutes. Time spent: Less than 30 minutes Discharge Plan Discharge Anticipated Discharge Date/Time: 11/01/24 10:00 Patient Disposition: Home, Self-Care Discharge Diagnosis: Major depressive disorder recurrent episode severe with psychotic features. Substance induced mood disorder, due to corticosteroids. COPD Referrals: [facility] [Other] - 1 Week [facility] [Other] - 1 Week Shon Tolliver MD [Primary Care Provider] - 11/07/24 11:20 am () Discharge Medications: New metformin 500 mg Tablet 500 mg PO BIDWM 30 Days Qty: 60 0RF donepezil 5 mg Tablet 5 mg PO BEDTIME 30 Days Qty: 30 0RF venlafaxine 150 mg Capsule,Extended Release 24hr 150 mg PO DAILY 30 Days Qty: 30 0RF potassium chloride 20 mEq Tablet,Er Particles/Crystals 20 meq PO DAILY 30 Days Qty: 30 0RF lorazepam 0.5 mg Tablet 0.5 mg PO TID 30 Days Qty: 90 0RF nystatin 100,000 unit/gram Powder 1 appl topical BID 30 Days Qty: 5 0RF Protocol: Apply to: Apply to: affected area albuterol sulfate [Ventolin HFA] 90 mcg/actuation Hfa Aerosol Inhaler 2 puff inhalation Q4H PRN (Reason: Asthma attack) 30 Days Qty: 1 0RF aripiprazole [Abilify] 5 mg Tablet 5 mg PO DAILY 30 Days Qty: 30 0RF Continued fluticasone propion-salmeterol [Wixela Inhub] 250-50 mcg/dose blister with device 1 ea INHALATION BID 30 Days Qty: 60 0RF metoprolol succinate 100 mg tablet extended release 24 hr 100 mg PO DAILY 30 Days Qty: 30 0RF simvastatin 40 mg tablet 40 mg PO BEDTIME 30 Days Qty: 30 0RF trazodone 100 mg tablet 100 mg PO BEDTIME 30 Days Qty: 30 0RF tiotropium bromide 18 mcg capsule, w/inhalation device 1 cap inhalation DAILY 30 Days Qty: 30 0RF Discontinued hydroxyzine HCl 25 mg tablet 25 mg PO TID lorazepam 1 mg tablet 0.5 mg PO TID PRN (Reason: Anxiety) metoclopramide HCl 10 mg tablet 10 mg PO BID venlafaxine 75 mg capsule,extended release 24hr 225 mg PO DAILY Discharge Orders: Discharge Order (Routine); Ordered 11/01/24 Ordered By: Kyle Donald Activity on Discharge: As tolerated Stand Alone Forms: Patient Portal Discharge page Print Language: Italian Care Plan Goals: Care plan goals achieved in this admission Health Concerns: Continue treatment with primary care physician and other specialists as an outpatient. Plan of Treatment: Continue psychiatric treatment as an outpatient. Assessment: Elderly female with a history of major depressive disorder and COPD that decompensated after the use of corticosteroids for COPD exacerbation. We decided to change her Risperdal to Abilify with for improvement and start Ativan standing to control her anxiety. At this moment the patient is safe to be discharged to the community.
[2024-11-01 08:00] VITALS: BP 141/67; PULSE 82; RESP 18; TEMP 36.7; O2SAT 92
[2024-11-01] MEDS: Venlafaxine HCl ER 150 MG CAP.ER.24H PO (08:09)
[2024-11-01] MEDS: Fluticasone/Vilanterol 100/25 BLST.W.DEV 1 PUFF INHALE (08:09)
[2024-11-01] MEDS: Atorvastatin Calcium 20 MG TABLET PO (08:10)
[2024-11-01] MEDS: metFORMIN HCl 500 MG TABLET PO (08:10)
[2024-11-01] MEDS: LORazepam 0.5 MG TABLET PO (08:10)
[2024-11-01] MEDS: ARIPiprazole 5 MG TABLET PO (08:10)
[2024-11-01] MEDS: Potassium Chloride ER 20 MEQ TAB.ER.PRT PO (08:10)
[2024-11-01] MEDS: Metoprolol Succinate ER 100 MG TAB.ER.24H PO (08:10)
[2024-11-01] MEDS: Tiotropium Bromide 2.5 mcg 1 PUFF/2.5 MCG MIST.INHAL 2 PUFF INHALE (08:34)
[2024-11-01] MEDS: Nystatin Powder 15 GM BOTTLE 1 APPL TOPICAL (08:39)
== END 2024-11-01 11:15 | disposition home or self-care (01) | DRG 885 ==
LOC: HO.ED 14:32 → HO.PGERI 15:29
PROVIDERS: Psychiatry & Neurology Psychiatry; Social Worker; Student in an Organized Health Care Education/Training Program; Admitting Provider Psychiatry & Neurology Psychiatry; Emergency Provider Emergency Medicine Emergency Medical Services; PCP Internal Medicine; Visit Provider Psychiatry & Neurology Psychiatry
DX: F33.3 Major depressive disorder, recurrent, severe with psychotic symptoms (principal); R45.851 Suicidal ideations; I12.9 Hypertensive chronic kidney disease with stage 1 through stage 4 chronic kidney disease, or unspecified chronic kidney disease; N18.30 Chronic kidney disease, stage 3 unspecified; R73.03 Prediabetes; J44.9 Chronic obstructive pulmonary disease, unspecified; E87.6 Hypokalemia; F41.9 Anxiety disorder, unspecified; T38.0X5A Adverse effect of glucocorticoids and synthetic analogues, initial encounter; Z91.148 Patient's other noncompliance with medication regimen for other reason; Z87.891 Personal history of nicotine dependence; Z79.899 Other long term (current) drug therapy
CPT/HCPCS: 36415; 71045; 80048; 80051; 80053; 80061; 81001; 82607; 82746; 82947; 83036; 84443; 85025; 87086; 93005; 97161; 99285; S9485

== ENCOUNTER → 2024-10-23 09:23 | Outpatient (BNV) | payer MEDICARE, SELFPAY | PROVIDERS: Admitting Provider Psychiatry & Neurology Psychiatry; Emergency Provider Emergency Medicine Emergency Medical Services; PCP Internal Medicine; Visit Provider Internal Medicine | DX: R94.31 Abnormal electrocardiogram [ECG] [EKG] (principal); I51.7 Cardiomegaly | CPT/HCPCS: 93010 ==

== ENCOUNTER → 2024-10-23 15:22 | Outpatient (BNV) | payer MEDICARE, SELFPAY | PROVIDERS: Admitting Provider Psychiatry & Neurology Psychiatry; Emergency Provider Emergency Medicine Emergency Medical Services; PCP Internal Medicine; Visit Provider Psychiatry & Neurology Psychiatry | DX: F33.2 Major depressive disorder, recurrent severe without psychotic features (principal); E87.6 Hypokalemia | CPT/HCPCS: 90792; 99231; 99232 ==

== ENCOUNTER → 2024-10-23 15:22 | Outpatient (BNV) | payer MEDICARE, SELFPAY | PROVIDERS: Admitting Provider Psychiatry & Neurology Psychiatry; Emergency Provider Emergency Medicine Emergency Medical Services; PCP Internal Medicine; Visit Provider Psychiatry & Neurology Psychiatry | DX: F33.2 Major depressive disorder, recurrent severe without psychotic features (principal); F19.980 Other psychoactive substance use, unspecified with psychoactive substance-induced anxiety disorder; E87.6 Hypokalemia | CPT/HCPCS: 99231; 99232; 99238 ==

== ENCOUNTER → 2024-10-23 15:22 | Outpatient (BNV) | payer MEDICARE, SELFPAY | PROVIDERS: Admitting Provider Psychiatry & Neurology Psychiatry; Emergency Provider Emergency Medicine Emergency Medical Services; PCP Internal Medicine; Visit Provider Student in an Organized Health Care Education/Training Program | DX: Z02.2 Encounter for examination for admission to residential institution (principal) | CPT/HCPCS: 99429; 99499 ==